=== PATIENT | male | born 1960 | race Caucasian/White ===

== ENCOUNTER 2017-05-19 09:36 | Emergency (ER) | payer OTHER ==
[2017-05-19] MEDS ORDERED: ONDANSETRON 4 MG/2 ML VIAL IVP STA (10:48)
[2017-05-19] MEDS ORDERED: SODIUM CHLORIDE 0.9% 1,000 ML IV STA ×2 (10:48→12:40)
[2017-05-19] MEDS ORDERED: HYDROmorphone 1 MG/ML 1 ML SYRINGE IVP STA ×2 (10:48→13:55)
[2017-05-19] MEDS ORDERED: RX INFO: IV CONTRAST WAS GIVEN 1 EACH MISC MISCELLANE PRN (10:54)
--- NOTE | 2017-05-19 10:58 | ED ---
General Adult HPI - General Chief complaint: Abdominal Pain Stated complaint: Abd Pain Time Seen by Provider: 05/19/17 10:32 Source: patient, RN notes reviewed Mode of arrival: ambulatory Limitations: no limitations - History of Present Illness Initial comments: 56-year-old male presents emergency Department with a chief complaint of lower abdominal pain. Patient states she's had this for the last few days. Patient does admit to a low-grade fever. Denies any nausea vomiting. He states touching the area seems to make it worse. He denies any health history but states does not see the doctor. Patient states that he was concerned due to the worsening of his pain so he thought that he should be evaluated.Patient denies any recent fever, chills, shortness of breath, chest pain, back pain, nausea vomiting, numbness or tingling, dysuria or hematuria, constipation or diarrhea, headaches or visual changes, or any other current symptoms. - Related Data Home Medications Medication Instructions Recorded Confirmed Antabuse (Unknown Dose) 1 tab PO DAILY 05/19/17 05/19/17 Ascorbic Acid [Vitamin C] 500 mg PO DAILY 05/19/17 05/19/17 Calcium Carbonate [Calcium] 600 mg PO DAILY 05/19/17 05/19/17 Ibuprofen [Motrin] 400 mg PO Q6HR PRN 05/19/17 05/19/17 Previous Rx's Medication Instructions Recorded Ciprofloxacin HCl [Cipro] 500 mg PO Q12HR #14 tablet 05/19/17 metroNIDAZOLE [Flagyl] 500 mg PO BID #20 tab 05/19/17 Allergies Allergy/AdvReac Type Severity Reaction Status Date / Time No Known Allergies Allergy Verified 05/19/17 10:41 Review of Systems ROS Statement: Those systems with pertinent positive or pertinent negative responses have been documented in the HPI. ROS Other: All systems not noted in ROS Statement are negative. Past Medical History Past Medical History: No Reported History History of Any Multi-Drug Resistant Organisms: None Reported Past Surgical History: Appendectomy, Orthopedic Surgery Additional Past Surgical History / Comment(s): left knee ortho Past Psychological History: No Psychological Hx Reported Smoking Status: Current every day smoker Past Alcohol Use History: None Reported Past Drug Use History: Marijuana General Exam - General Exam Comments Initial Comments: General: The patient is awake and alert, in no distress, and does not appear acutely ill. Eye: Pupils are equal, round and reactive to light, extra-ocular movements are intact; there is normal conjunctiva bilaterally. No signs of icterus. Ears, nose, mouth and throat: There are moist mucous membranes and no oral lesions. Neck: The neck is supple, there is no tenderness. Cardiovascular: There is a regular rate and rhythm. No murmur, rub or gallop is appreciated. Respiratory: Lungs are clear to auscultation, respirations are non-labored, breath sounds are equal. No wheezes, stridor, rales, or rhonchi. Gastrointestinal: Soft, non-distended, tenderness in the bilateral lower quadrants of the abdomen without masses or organomegaly noted. There is no rebound or guarding present. No CVA tenderness. Bowel sounds are unremarkable. Back: There is no tenderness to palpation in the midline. There is no obvious deformity. No rashes noted. Musculoskeletal: Normal ROM, no tenderness, There is no pedal edema. There is no calf tenderness or swelling. Sensation intact. Pulses equal bilaterally 2+. Neurological: CN II-XII intact, There are no obvious motor or sensory deficits. Coordination appears grossly intact. Speech is normal. Skin: Skin is warm and dry and no rashes or lesions are noted. Psychiatric: Cooperative, appropriate mood & affect, normal judgment. Limitations: no limitations Course Vital Signs 05/19/17 05/19/17 09:44 11:19 Temperature 100.1 F H 98.7 F Pulse Rate 97 81 Respiratory 18 18 Rate Blood Pressure 134/101 126/75 O2 Sat by Pulse 99 100 Oximetry Medical Decision Making - Medical Decision Making 48-year-old male presents emergency department with a chief complaint of lower abdominal pain. At this time CAT scan and lab work is been reviewed. Patient has a mildly elevated white count and CAT scan is showing a possible colitis versus other etiologies. At this time we did discuss that we will start the patient on antibiotics for home. We did discuss follow-up with the family care doctor we did discuss return parameters. We discussed this could get worse and may need to be hospitalized. This time we did offer hospitalization but patient states he rather go home. This time PATIENT'S questions have been answered. He will be discharged home. - Lab Data Result diagrams: 05/19/17 10:36 05/19/17 10:36 Lab Results 05/19/17 05/19/17 05/19/17 Range/Units 10:36 10:36 10:36 WBC 14.7 H (3.8-10.6) k/uL RBC 4.84 (4.30-5.90) m/uL Hgb 15.5 (13.0-17.5) gm/dL Hct 48.9 (39.0-53.0) % MCV 101.1 H (80.0-100.0) fL MCH 32.1 (25.0-35.0) pg MCHC 31.8 (31.0-37.0) g/dL RDW 13.3 (11.5-15.5) % Plt Count 360 (150-450) k/uL Neutrophils % 76 % Lymphocytes % 12 % Monocytes % 8 % Eosinophils % 2 % Basophils % 1 % Neutrophils # 11.1 H (1.3-7.7) k/uL Lymphocytes # 1.8 (1.0-4.8) k/uL Monocytes # 1.2 H (0-1.0) k/uL Eosinophils # 0.3 (0-0.7) k/uL Basophils # 0.1 (0-0.2) k/uL PT 10.3 (9.0-12.0) sec INR 1.0 (<1.2) APTT 21.7 L (22.0-30.0) sec Sodium 138 (137-145) mmol/L Potassium 4.4 (3.5-5.1) mmol/L Chloride 102 (98-107) mmol/L Carbon Dioxide 25 (22-30) mmol/L Anion Gap 11 mmol/L BUN 6 L (9-20) mg/dL Creatinine 0.73 (0.66-1.25) mg/dL Est GFR (MDRD) Af Amer >60 (>60 ml/min/1.73 sqM) Est GFR (MDRD) Non-Af >60 (>60 ml/min/1.73 sqM) Glucose 96 (74-99) mg/dL Plasma Lactic Acid Andrés (0.7-2.0) mmol/L Calcium 9.8 (8.4-10.2) mg/dL Total Bilirubin 0.5 (0.2-1.3) mg/dL AST 33 (17-59) U/L ALT 68 (21-72) U/L Alkaline Phosphatase 114 (38-126) U/L Total Protein 7.4 (6.3-8.2) g/dL Albumin 4.4 (3.5-5.0) g/dL Amylase 44 (30-110) U/L Lipase 55 (23-300) U/L Urine Color Urine Appearance (Clear) Urine pH (5.0-8.0) Ur Specific [place] (1.001-1.035) Urine Protein (Negative) Urine Glucose (UA) (Negative) Urine Ketones (Negative) Urine Blood (Negative) Urine Nitrite (Negative) Urine Bilirubin (Negative) Urine Urobilinogen (<2.0) mg/dL Ur Leukocyte Esterase (Negative) Urine RBC (0-5) /hpf Urine WBC (0-5) /hpf Urine Mucus (None) /hpf 05/19/17 05/19/17 Range/Units 11:04 11:10 WBC (3.8-10.6) k/uL RBC (4.30-5.90) m/uL Hgb (13.0-17.5) gm/dL Hct (39.0-53.0) % MCV (80.0-100.0) fL MCH (25.0-35.0) pg MCHC (31.0-37.0) g/dL RDW (11.5-15.5) % Plt Count (150-450) k/uL Neutrophils % % Lymphocytes % % Monocytes % % Eosinophils % % Basophils % % Neutrophils # (1.3-7.7) k/uL Lymphocytes # (1.0-4.8) k/uL Monocytes # (0-1.0) k/uL Eosinophils # (0-0.7) k/uL Basophils # (0-0.2) k/uL PT (9.0-12.0) sec INR (<1.2) APTT (22.0-30.0) sec Sodium (137-145) mmol/L Potassium (3.5-5.1) mmol/L Chloride (98-107) mmol/L Carbon Dioxide (22-30) mmol/L Anion Gap mmol/L BUN (9-20) mg/dL Creatinine (0.66-1.25) mg/dL Est GFR (MDRD) Af Amer (>60 ml/min/1.73 sqM) Est GFR (MDRD) Non-Af (>60 ml/min/1.73 sqM) Glucose (74-99) mg/dL Plasma Lactic Acid Andrés 1.6 (0.7-2.0) mmol/L Calcium (8.4-10.2) mg/dL Total Bilirubin (0.2-1.3) mg/dL AST (17-59) U/L ALT (21-72) U/L Alkaline Phosphatase (38-126) U/L Total Protein (6.3-8.2) g/dL Albumin (3.5-5.0) g/dL Amylase (30-110) U/L Lipase (23-300) U/L Urine Color Yellow Urine Appearance Clear (Clear) Urine pH 6.0 (5.0-8.0) Ur Specific [place] 1.007 (1.001-1.035) Urine Protein Negative (Negative) Urine Glucose (UA) Negative (Negative) Urine Ketones Negative (Negative) Urine Blood Small H (Negative) Urine Nitrite Negative (Negative) Urine Bilirubin Negative (Negative) Urine Urobilinogen <2.0 (<2.0) mg/dL Ur Leukocyte Esterase Negative (Negative) Urine RBC 2 (0-5) /hpf Urine WBC 1 (0-5) /hpf Urine Mucus Rare H (None) /hpf - Radiology Data Radiology results: report reviewed, image reviewed Disposition Clinical Impression: Colitis Disposition: HOME SELF-CARE Condition: Stable Instructions: Colitis (ED) Additional Instructions: Please use medication as discussed. Please follow up with family doctor if symptoms have not improved over the next two days. Please return to the emergency room if your symptoms increase or worsen or for any other concerns. Prescriptions: Ciprofloxacin HCl [Cipro] 500 mg PO Q12HR #14 tablet metroNIDAZOLE [Flagyl] 500 mg PO BID #20 tab Referrals: Rashad Dickey MD [STAFF PHYSICIAN] - 1-2 days Time of Disposition: 12:41
[2017-05-19 11:06] LABS: Basophils # (A) 0.1 k/uL (0-0.2); Basophils % (A) 1 %; CH 33.8; CHCM 33.5; Eosinophils # (A) 0.3 k/uL (0-0.7); Eosinophils % (A) 2 %; HCT 48.9 % (39.0-53.0); HDW 2.11; HGB 15.5 gm/dL (13.0-17.5); Luc # (Auto) 0.24; Luc % (Auto) 2; Lymphocytes # (A) 1.8 k/uL (1.0-4.8); Lymphocytes % (A) 12 %; MCH 32.1 pg (25.0-35.0); MCHC 31.8 g/dL (31.0-37.0); MCV 101.1 fL (80.0-100.0); Mean Platelet Volume 7.4; Monocytes # (A) 1.2 k/uL (0-1.0); Monocytes % (A) 8 %; Neutrophils # (A) 11.1 k/uL (1.3-7.7); Neutrophils % (A) 76 %; RBC 4.84 m/uL (4.30-5.90); RDW 13.3 % (11.5-15.5); WBC 14.7 k/uL (3.8-10.6); WBC (Perox) 14.69
[2017-05-19 11:19] LABS: Prothrombin Time 10.3 sec (9.0-12.0)
[2017-05-19 11:20] LABS: ALT 68 U/L (21-72); AST 33 U/L (17-59); Alkaline Phosphatase 114 U/L (38-126); Amylase 44 U/L (30-110); Anion Gap 11 mmol/L; Blood Urea Nitrogen 6 mg/dL (9-20); Calcium 9.8 mg/dL (8.4-10.2); Carbon Dioxide 25 mmol/L (22-30); Chloride 102 mmol/L (98-107); Glucose 96 mg/dL (74-99); Non-African American GFR(MDRD) >60 (>60 ml/min/1.73 sqM); Potassium 4.4 mmol/L (3.5-5.1); Sodium 138 mmol/L (137-145); Total Bilirubin 0.5 mg/dL (0.2-1.3); Total Protein 7.4 g/dL (6.3-8.2)
[2017-05-19 11:22] LABS: Partial Thromboplastin Time 21.7 sec (22.0-30.0)
[2017-05-19 11:51] LABS: Appearance,Urine Clear (Clear); Bilirubin,Urine Negative (Negative); Glucose,Urine (UA) Negative (Negative); Ketones,Urine Negative (Negative); Leukocyte Esterase,Urine Negative (Negative); Mucus,Urine Rare /hpf; Nitrite,Urine Negative (Negative); Particle Count 1067; Protein,Urine Negative (Negative); RBC,Urine 2 /hpf (0-5); Specific Gravity,Urine 1.007 (1.001-1.035); UA Billing (MACRO vs. MICRO) MICRO; Urobilinogen,Urine <2.0 mg/dL (<2.0); WBC,Urine 1 /hpf (0-5)
--- NOTE | 2017-05-19 12:01 | CT ---
EXAMINATION TYPE: CT abdomen pelvis w con DATE OF EXAM: 05/19/2017 COMPARISON: NONE HISTORY: RLQ pain with blood in the stool CT DLP: 758.7 mGycm Automated exposure control for dose reduction was used. CONTRAST: CT scan of the abdomen pelvis is performed with IV Contrast, patient injected with 100 mL of Omnipaqu e 300. FINDINGS- LUNG BASES- No significant abnormality is appreciated. LIVER/GB-gallbladder is mildly distended.. PANCREAS- No gross abnormality is seen. SPLEEN- No gross abnormality is seen. ADRENALS- No gross abnormality is seen. KIDNEYS/BLADDER- no hydronephrosis nephrolithiasis or renal mass. BOWEL-there is wall thickening of the cecum with surrounding pericecal inflammation. Findings compati ble with acute inflammatory process. LYMPH NODES- No greater than 1cm abdominal or pelvic lymph nodes are appreciated. OSSEOUS STRUCTURES-hypertrophic and degenerative change spine noted. IMPRESSION- 1. Inflammatory process and thickening of the wall of the cecum. Differential diagnosis includes righ t-sided diverticulitis, colitis or stump appendicitis. Correlate clinically.
[2017-05-19] MEDS ORDERED: LEVOFLOXACIN 750MG-D5W PMX 750 MG in DEXTROSE/WATER 1 150ML.BAG IVPB STA (12:39)
[2017-05-19] MEDS ORDERED: metroNIDAZOLE-NS PMX 500 MG in SALINE 1 100ML.BAG IVPB STA (12:41)
[2017-05-19 15:13] VITALS: BP 137/72; PULSE 72; RESP 16; TEMP 98.6
== END 2017-05-19 15:13 | disposition home or self-care (01) ==
LOC: EC 09:36
DX: K52.9 Noninfective gastroenteritis and colitis, unspecified (principal); F17.200 Nicotine dependence, unspecified, uncomplicated; Z90.49 Acquired absence of other specified parts of digestive tract; Z79.899 Other long term (current) drug therapy
CPT/HCPCS: 99284; 96365; 96366; 96368; 96375 ×2; 96376; 96361; 36415; 80053; 82150; 83605; 83690; 85025; 85610; 85730; 81001; 87040; 74177; J2405; J1170; J1956; Q9967

== ENCOUNTER 2017-05-30 01:59 | Inpatient (IN) | payer OTHER ==
[2017-05-30] MEDS ORDERED: SODIUM CHLORIDE 0.9% 500 ML IV STA (02:27)
[2017-05-30] MEDS ORDERED: ONDANSETRON 4 MG/2 ML VIAL IVP STA (02:27)
[2017-05-30] MEDS ORDERED: HYDROmorphone 1 MG/ML 1 ML SYRINGE IVP STA ×2 (02:27→04:05)
--- NOTE | 2017-05-30 03:05 | ED ---
Abdominal Pain HPI <BallardDillan - Last Filed: 05/30/17 04:37> - General Source: patient Mode of arrival: wheelchair Limitations: no limitations <Yaritza Boyd - Last Filed: 05/30/17 04:54> - General Chief Complaint: Abdominal Pain Stated Complaint: Abdominal Pain Time Seen by Provider: 05/30/17 02:17 - History of Present Illness Initial Comments: 56-year-old male patient presented to emergency department today with complaints of abdominal pain. The patient states that he has been having abdominal pain for the last 10 days. States that he was seen here and diagnosed with a colon infection, he was given Cipro for this and did complete the prescription except for 1 pill. Patient states that the pain did improve somewhat, however 2 days ago the pain started again but was more severe. Patient states his abdomen is extremely tender to the touch. He describes the pain as sharp and constant. He states he has had one episode of vomiting today however does not feel overtly nauseous. He states that he is also having approximately 3 bowel movements per day which is normal for him however they have been black. Patient states he has had presence of bright red blood in his bowel movements before however has never had black stool. He denies any fever, chills, chest pain, dizziness, weakness, visual disturbance, headache, shortness of breath, back pain, hematuria, dysuria, urinary frequency or urinary urgency. Patient did abuse alcohol for the last 40 years however states he has been abstinent for the last 30 days. The liver did pull me outside the room and states that 2 days ago patient was intoxicated on liquor 2 days ago however has been sober since. (Yaritza Boyd) - Related Data Home Medications Medication Instructions Recorded Confirmed Antabuse (Unknown Dose) 1 tab PO DAILY 05/19/17 05/30/17 Ascorbic Acid [Vitamin C] 500 mg PO DAILY 05/19/17 05/30/17 Calcium Carbonate [Calcium] 600 mg PO DAILY 05/19/17 05/30/17 Ibuprofen [Motrin] 400 mg PO Q6HR PRN 05/19/17 05/30/17 Previous Rx's Medication Instructions Recorded Hydrocodone/Acetaminophen [[place] 1 each PO Q6HR PRN #20 tab 05/19/17 5-325] Allergies Allergy/AdvReac Type Severity Reaction Status Date / Time No Known Allergies Allergy Verified 05/19/17 10:41 Review of Systems ROS Other: All systems not noted in ROS Statement are negative. <Dillan Ballard - Last Filed: 05/30/17 04:37> ROS Other: All systems not noted in ROS Statement are negative. <Yaritza Boyd - Last Filed: 05/30/17 04:54> ROS Statement: Those systems with pertinent positive or pertinent negative responses have been documented in the HPI. Past Medical History Past Medical History: No Reported History History of Any Multi-Drug Resistant Organisms: None Reported Past Surgical History: Appendectomy, Orthopedic Surgery Additional Past Surgical History / Comment(s): left knee ortho Past Psychological History: No Psychological Hx Reported Smoking Status: Current every day smoker Past Alcohol Use History: None Reported Past Drug Use History: Marijuana <Yaritza Boyd - Last Filed: 05/30/17 04:54> General Exam Limitations: no limitations General appearance: alert, in no apparent distress Eye exam: Present: normal appearance, PERRL, EOMI. Absent: scleral icterus, conjunctival injection, periorbital swelling ENT exam: Present: normal exam, normal oropharynx, mucous membranes moist Neck exam: Present: normal inspection. Absent: tenderness, meningismus, lymphadenopathy Respiratory exam: Present: normal lung sounds bilaterally. Absent: respiratory distress, wheezes, rales, rhonchi, stridor Cardiovascular Exam: Present: regular rate, normal rhythm, normal heart sounds. Absent: systolic murmur, diastolic murmur, rubs, gallop, clicks GI/Abdominal exam: Present: soft, tenderness (Generalized), guarding, normal bowel sounds. Absent: distended, rebound, rigid Extremities exam: Present: normal inspection, full ROM, normal capillary refill. Absent: tenderness, pedal edema, joint swelling, calf tenderness Back exam: Present: normal inspection. Absent: CVA tenderness (R), CVA tenderness (L) Neurological exam: Present: alert, oriented X3, CN II-XII intact Psychiatric exam: Present: normal affect, normal mood Skin exam: Present: warm, dry, intact, normal color. Absent: rash <Yaritza Boyd - Last Filed: 05/30/17 04:54> Medical Decision Making - Lab Data Result diagrams: 05/30/17 02:55 05/30/17 02:55 <Dillan Ballard - Last Filed: 05/30/17 04:37> - Lab Data Result diagrams: 05/30/17 02:55 05/30/17 02:55 - Radiology Data Radiology results: report reviewed, image reviewed <Yaritza Boyd - Last Filed: 05/30/17 04:54> - Medical Decision Making Patient reevaluated by myself, Dr. Ballard. Patient is resting comfortably in bed. Patient does have mild diffuse tenderness, moderate right lower quadrant tenderness and light exam. Patient may have some minimal guarding right lower quadrant. Patient and family were updated on results and plan. Case was discussed in detail with Dr. Grace, including computed tomography scan. He will admit and agrees with Unasyn at this time. He will evaluate patient this morning. (Dillan Ballard) 56-year-old male patient presented to emergency department today for evaluation of generalized abdominal pain. CT of the abdomen and pelvis was obtained and did show areas of pneumoperitoneum, free of fluid in the pelvis, and possibility for acutely ruptured appendicitis. Blood work was reviewed and did show a 20.5 white blood cell count. Patient vital signs up in stable patient is afebrile. Patient does report having appendectomy at age 11. The concern is for a ruptured appendix stump versus other inflammatory etiology. Dr. Ballard by attending did speak to Dr. Grace the surgeon cotton grower who agrees with our plan to start Unasyn. Patient will be given medication for pain control, IV fluids, and admitted for further evaluation. Patient and family updated regarding plan. (Yaritza Boyd) - Lab Data Lab Results 05/30/17 05/30/17 05/30/17 Range/Units 02:41 02:55 02:55 WBC 20.5 H (3.8-10.6) k/uL RBC 4.84 (4.30-5.90) m/uL Hgb 15.4 (13.0-17.5) gm/dL Hct 46.9 (39.0-53.0) % MCV 96.9 (80.0-100.0) fL MCH 31.9 (25.0-35.0) pg MCHC 32.9 (31.0-37.0) g/dL RDW 13.4 (11.5-15.5) % Plt Count 324 (150-450) k/uL Neutrophils % 90 % Lymphocytes % 6 % Monocytes % 2 % Eosinophils % 2 % Basophils % 0 % Neutrophils # 18.3 H (1.3-7.7) k/uL Lymphocytes # 1.3 (1.0-4.8) k/uL Monocytes # 0.4 (0-1.0) k/uL Eosinophils # 0.4 (0-0.7) k/uL Basophils # 0.1 (0-0.2) k/uL PT (9.0-12.0) sec INR (<1.2) APTT (22.0-30.0) sec Sodium 139 (137-145) mmol/L Potassium 3.2 L (3.5-5.1) mmol/L Chloride 103 (98-107) mmol/L Carbon Dioxide 27 (22-30) mmol/L Anion Gap 9 mmol/L BUN 7 L (9-20) mg/dL Creatinine 0.70 (0.66-1.25) mg/dL Est GFR (MDRD) Af Amer >60 (>60 ml/min/1.73 sqM) Est GFR (MDRD) Non-Af >60 (>60 ml/min/1.73 sqM) Glucose 87 (74-99) mg/dL Plasma Lactic Acid Andrés (0.7-2.0) mmol/L Calcium 9.2 (8.4-10.2) mg/dL Total Bilirubin 0.6 (0.2-1.3) mg/dL AST 44 (17-59) U/L ALT 59 (21-72) U/L Alkaline Phosphatase 118 (38-126) U/L Total Protein 6.5 (6.3-8.2) g/dL Albumin 3.7 (3.5-5.0) g/dL Amylase 62 (30-110) U/L Lipase 56 (23-300) U/L Urine Color Yellow Urine Appearance Clear (Clear) Urine pH 5.5 (5.0-8.0) Ur Specific [place] 1.015 (1.001-1.035) Urine Protein Negative (Negative) Urine Glucose (UA) Negative (Negative) Urine Ketones Negative (Negative) Urine Blood Small H (Negative) Urine Nitrite Negative (Negative) Urine Bilirubin Negative (Negative) Urine Urobilinogen <2.0 (<2.0) mg/dL Ur Leukocyte Esterase Negative (Negative) Urine RBC 3 (0-5) /hpf Urine WBC <1 (0-5) /hpf Ur Squamous Epith Cells <1 (0-4) /hpf Urine Mucus Rare H (None) /hpf Stool Occult Blood (Negative) 05/30/17 05/30/17 05/30/17 Range/Units 02:55 02:55 03:25 WBC (3.8-10.6) k/uL RBC (4.30-5.90) m/uL Hgb (13.0-17.5) gm/dL Hct (39.0-53.0) % MCV (80.0-100.0) fL MCH (25.0-35.0) pg MCHC (31.0-37.0) g/dL RDW (11.5-15.5) % Plt Count (150-450) k/uL Neutrophils % % Lymphocytes % % Monocytes % % Eosinophils % % Basophils % % Neutrophils # (1.3-7.7) k/uL Lymphocytes # (1.0-4.8) k/uL Monocytes # (0-1.0) k/uL Eosinophils # (0-0.7) k/uL Basophils # (0-0.2) k/uL PT 11.3 (9.0-12.0) sec INR 1.1 (<1.2) APTT 23.0 (22.0-30.0) sec Sodium (137-145) mmol/L Potassium (3.5-5.1) mmol/L Chloride (98-107) mmol/L Carbon Dioxide (22-30) mmol/L Anion Gap mmol/L BUN (9-20) mg/dL Creatinine (0.66-1.25) mg/dL Est GFR (MDRD) Af Amer (>60 ml/min/1.73 sqM) Est GFR (MDRD) Non-Af (>60 ml/min/1.73 sqM) Glucose (74-99) mg/dL Plasma Lactic Acid Andrés 1.8 (0.7-2.0) mmol/L Calcium (8.4-10.2) mg/dL Total Bilirubin (0.2-1.3) mg/dL AST (17-59) U/L ALT (21-72) U/L Alkaline Phosphatase (38-126) U/L Total Protein (6.3-8.2) g/dL Albumin (3.5-5.0) g/dL Amylase (30-110) U/L Lipase (23-300) U/L Urine Color Urine Appearance (Clear) Urine pH (5.0-8.0) Ur Specific [place] (1.001-1.035) Urine Protein (Negative) Urine Glucose (UA) (Negative) Urine Ketones (Negative) Urine Blood (Negative) Urine Nitrite (Negative) Urine Bilirubin (Negative) Urine Urobilinogen (<2.0) mg/dL Ur Leukocyte Esterase (Negative) Urine RBC (0-5) /hpf Urine WBC (0-5) /hpf Ur Squamous Epith Cells (0-4) /hpf Urine Mucus (None) /hpf Stool Occult Blood Negative (Negative) 05/30/17 03:25 EKG obtained at 0310 reveals normal sinus rhythm with sinus arrhythmia. Possible left atrial margin. Borderline EKG. Ventricular rate is 82,. Interval 184, QRS duration 90, QT 394, QTc 460. No evidence of ST elevation or depression. (Yaritza Boyd) - Radiology Data KUB x-ray was obtained and showed an that the GI tract is unremarkable no dilation. Bones and joints are unremarkable. Impression is normal KUB x-ray by Dr. Bates. CT of the abdomen and pelvis did show acute information the right lower quadrant with small amounts of pneumoperitoneum compatible with acutely ruptured appendicitis. Free fluid noted in the pelvis. Bones and joints show no acute fracture or dislocation. Impression by Dr Bates showed an acutely ruptured appendicitis.. (Yaritza Boyd) Disposition <Dillan Ballard - Last Filed: 05/30/17 04:37> Decision to Admit Reason: Admit from EC Decision Date: 05/30/17 Decision Time: 04:47 <Yaritza Boyd - Last Filed: 05/30/17 04:54> Clinical Impression: Ruptured appendicitis Disposition: ADMITTED IP TO THIS [facility] Condition: Fair Referrals: None,Stated [Primary Care Provider] - 1-2 days
[2017-05-30 03:06] LABS: Appearance,Urine Clear (Clear); Bilirubin,Urine Negative (Negative); Glucose,Urine (UA) Negative (Negative); Ketones,Urine Negative (Negative); Leukocyte Esterase,Urine Negative (Negative); Mucus,Urine Rare /hpf; Nitrite,Urine Negative (Negative); PH, Urine 5.5 (5.0-8.0); Particle Count 2592; Protein,Urine Negative (Negative); RBC,Urine 3 /hpf (0-5); Specific Gravity,Urine 1.015 (1.001-1.035); Squamous Epithelial Cell,Urine <1 /hpf (0-4); UA Billing (MACRO vs. MICRO) MICRO; Urobilinogen,Urine <2.0 mg/dL (<2.0); WBC,Urine <1 /hpf (0-5)
--- NOTE | 2017-05-30 03:10 | XR ---
EXAM: XR KUB, 1 View CLINICAL HISTORY: Reason: abdominal pain TECHNIQUE: Frontal supine view of the abdomen/pelvis. COMPARISON: No relevant prior studies available. FINDINGS: Gastrointestinal tract: Unremarkable. No dilation. Bones/joints: Unremarkable. IMPRESSION: Normal KUB x-ray.
[2017-05-30] MEDS ORDERED: RX INFO: IV CONTRAST WAS GIVEN 1 EACH MISC MISCELLANE PRN (03:31)
[2017-05-30 03:35] LABS: Basophils # (A) 0.1 k/uL (0-0.2); Basophils % (A) 0 %; CH 33.5; CHCM 34.7; Eosinophils # (A) 0.4 k/uL (0-0.7); Eosinophils % (A) 2 %; HCT 46.9 % (39.0-53.0); HDW 2.27; HGB 15.4 gm/dL (13.0-17.5); Luc % (Auto) 1; Lymphocytes # (A) 1.3 k/uL (1.0-4.8); Lymphocytes % (A) 6 %; MCH 31.9 pg (25.0-35.0); MCHC 32.9 g/dL (31.0-37.0); MCV 96.9 fL (80.0-100.0); Mean Platelet Volume 7.6; Monocytes # (A) 0.4 k/uL (0-1.0); Monocytes % (A) 2 %; Neutrophils # (A) 18.3 k/uL (1.3-7.7); Neutrophils % (A) 90 %; RBC 4.84 m/uL (4.30-5.90); RDW 13.4 % (11.5-15.5); WBC 20.5 k/uL (3.8-10.6); WBC (Perox) 19.93
[2017-05-30 03:44] LABS: ALT 59 U/L (21-72); AST 44 U/L (17-59); Alkaline Phosphatase 118 U/L (38-126); Amylase 62 U/L (30-110); Anion Gap 9 mmol/L; Blood Urea Nitrogen 7 mg/dL (9-20); Calcium 9.2 mg/dL (8.4-10.2); Carbon Dioxide 27 mmol/L (22-30); Chloride 103 mmol/L (98-107); Glucose 87 mg/dL (74-99); Non-African American GFR(MDRD) >60 (>60 ml/min/1.73 sqM); Potassium 3.2 mmol/L (3.5-5.1); Sodium 139 mmol/L (137-145); Total Bilirubin 0.6 mg/dL (0.2-1.3); Total Protein 6.5 g/dL (6.3-8.2)
[2017-05-30 03:51] LABS: INR 1.1 (<1.2); Prothrombin Time 11.3 sec (9.0-12.0)
[2017-05-30] MEDS ORDERED: POTASSIUM CHLORIDE ER 20 MEQ TAB.ER PO STA (03:52)
--- NOTE | 2017-05-30 04:10 | CT ---
EXAM: CT Abdomen and Pelvis With Intravenous Contrast CLINICAL HISTORY: Reason: Pain TECHNIQUE: Axial computed tomography images of the abdomen and pelvis with intravenous contrast. DLP is 1446 mGy-cm. This CT exam was performed using one or more of the following dose reduction techniques: automated exposure control, adjustment of the mA and/or kV according to patient size, and/or use of iterative reconstruction technique. COMPARISON: 05/19/17 FINDINGS: Lower thorax: No acute findings. ABDOMEN: Liver: Unremarkable. No mass. Gallbladder and bile ducts: Unremarkable. No calcified stones. No ductal dilation. Pancreas: Unremarkable. No mass. No ductal dilation. Spleen: Unremarkable. No splenomegaly. Adrenals: Unremarkable. No mass. Kidneys and ureters: Unremarkable. No solid mass. No hydronephrosis. Stomach and bowel: Unremarkable. No obstruction. No mucosal thickening. Appendix: No findings to suggest acute appendicitis. PELVIS: Bladder: Unremarkable. No mass. Reproductive: Unremarkable as visualized. ABDOMEN and PELVIS: Intraperitoneal space: Acute inflammation in the right lower quadrant with small amounts of pneumoperitoneum compatible with acutely ruptured appendicitis. Free fluid noted in the pelvis. Bones/joints: No acute fracture. No dislocation. Soft tissues: Unremarkable. Vasculature: Unremarkable. No abdominal aortic aneurysm. Lymph nodes: Unremarkable. No enlarged lymph nodes. IMPRESSION: Acutely ruptured appendicitis. Critical Value Communications 05/30/17 04:12 Call Doctor Regarding Appendicitis, called Dr. Boyd on 05/30 04:11 (-04:00)
[2017-05-30] MEDS ORDERED: AMPICILLIN-SULBACTAM 3 GM in SODIUM CHLORIDE 0.9% 100 ML IVPB STA (04:13)
[2017-05-30] MEDS ORDERED: SODIUM CHLORIDE 0.9% 1,000 ML IV STA (04:14)
[2017-05-30] MEDS ORDERED: ONDANSETRON 4 MG/2 ML VIAL IVP PRN (04:40)
[2017-05-30] MEDS ORDERED: NALOXONE 0.4 MG/ML 1 ML VIAL IV PRN (04:40)
[2017-05-30] MEDS: HYDROmorphone 1 MG/ML 1 ML SYRINGE IV PRN ×5 (06:47→23:49)
[2017-05-30] MEDS: SODIUM CHLORIDE 0.9% 1,000 ML IV SCH ×2 (06:53→16:31)
[2017-05-30] MEDS: AMPICILLIN-SULBACTAM 3 GM in SODIUM CHLORIDE 0.9% 100 ML IVPB SCH ×3 (10:58→20:49)
[2017-05-30] MEDS ORDERED: IV FLUID CONTINUATION 1,000 ML IV ONE (12:18)
--- NOTE | 2017-05-30 12:20 | P.GSHP ---
History of Present Illness H&P Date: 05/30/17 Chief Complaint: Right lower quadrant pain This a 48-year-old male who has complaints of right lower quadrant pain for 3-5 days. The patient states he had significant pain yesterday. Patient's workup found have evidence of acute appendicitis. There is evidence of perforation with cecal thickening. The patient received IV antibiotic overnight. He states his pain has worsened. The patient states he had an appendectomy performed age 12. Past Medical History Past Medical History: No Reported History, Seizure Disorder Additional Past Medical History / Comment(s): ETOH seizures last month, "detoxing off alcohol" at [place] History of Any Multi-Drug Resistant Organisms: None Reported Past Surgical History: Appendectomy, Orthopedic Surgery Additional Past Surgical History / Comment(s): left knee ortho Past Anesthesia/Blood Transfusion Reactions: No Reported Reaction, Postoperative Nausea & Vomiting (PONV) Past Psychological History: No Psychological Hx Reported Smoking Status: Current every day smoker Past Alcohol Use History: None Reported Past Drug Use History: Marijuana - Past Family History Father Family Medical History: No Reported History Mother Family Medical History: CVA/TIA, Diabetes Mellitus, Myocardial Infarction ([place]) Medications and Allergies Home Medications Medication Instructions Recorded Confirmed Type Antabuse (Unknown Dose) 1 tab PO DAILY 05/19/17 05/30/17 History Ascorbic Acid [Vitamin C] 500 mg PO DAILY 05/19/17 05/30/17 History Calcium Carbonate [Calcium] 600 mg PO DAILY 05/19/17 05/30/17 History Ibuprofen [Motrin] 400 mg PO Q6HR PRN 05/19/17 05/30/17 History Ciprofloxacin HCl [Cipro] 500 mg PO Q12HR 05/30/17 05/30/17 History metroNIDAZOLE [Flagyl] 500 mg PO BID 05/30/17 05/30/17 History traZODone HCL [Desyrel] 150 mg PO HS PRN 05/30/17 05/30/17 History Allergies Allergy/AdvReac Type Severity Reaction Status Date / Time No Known Allergies Allergy Verified 05/30/17 10:57 Surgical - Exam Vital Signs Temp Pulse Resp BP Pulse Ox 97.1 F L 84 18 117/61 98 05/30/17 02:03 05/30/17 02:03 05/30/17 02:03 05/30/17 02:03 05/30/17 02:03 - General well developed, no distress - Eyes PERRL - ENT normal pinna - Neck no masses - Respiratory normal expansion - Cardiovascular Rhythm: regular - Abdomen Marked right lower quadrant tenderness. There is positive rebound guarding. Abdomen: soft Results - Labs 05/30/17 02:55 05/30/17 02:55 Abnormal Lab Results - Last 24 Hours (Table) 05/30/17 05/30/17 05/30/17 Range/Units 02:41 02:55 02:55 WBC 20.5 H (3.8-10.6) k/uL Neutrophils # 18.3 H (1.3-7.7) k/uL Potassium 3.2 L (3.5-5.1) mmol/L BUN 7 L (9-20) mg/dL Urine Blood Small H (Negative) Urine Mucus Rare H (None) /hpf Diabetes panel 05/30/17 Range/Units 02:55 Sodium 139 (137-145) mmol/L Potassium 3.2 L (3.5-5.1) mmol/L Chloride 103 (98-107) mmol/L Carbon Dioxide 27 (22-30) mmol/L BUN 7 L (9-20) mg/dL Creatinine 0.70 (0.66-1.25) mg/dL Glucose 87 (74-99) mg/dL Calcium 9.2 (8.4-10.2) mg/dL AST 44 (17-59) U/L ALT 59 (21-72) U/L Alkaline Phosphatase 118 (38-126) U/L Total Protein 6.5 (6.3-8.2) g/dL Albumin 3.7 (3.5-5.0) g/dL Calcium panel 05/30/17 Range/Units 02:55 Calcium 9.2 (8.4-10.2) mg/dL Albumin 3.7 (3.5-5.0) g/dL Pituitary panel 05/30/17 Range/Units 02:55 Sodium 139 (137-145) mmol/L Potassium 3.2 L (3.5-5.1) mmol/L Chloride 103 (98-107) mmol/L Carbon Dioxide 27 (22-30) mmol/L BUN 7 L (9-20) mg/dL Creatinine 0.70 (0.66-1.25) mg/dL Glucose 87 (74-99) mg/dL Calcium 9.2 (8.4-10.2) mg/dL Adrenal panel 05/30/17 Range/Units 02:55 Sodium 139 (137-145) mmol/L Potassium 3.2 L (3.5-5.1) mmol/L Chloride 103 (98-107) mmol/L Carbon Dioxide 27 (22-30) mmol/L BUN 7 L (9-20) mg/dL Creatinine 0.70 (0.66-1.25) mg/dL Glucose 87 (74-99) mg/dL Calcium 9.2 (8.4-10.2) mg/dL Total Bilirubin 0.6 (0.2-1.3) mg/dL AST 44 (17-59) U/L ALT 59 (21-72) U/L Alkaline Phosphatase 118 (38-126) U/L Total Protein 6.5 (6.3-8.2) g/dL Albumin 3.7 (3.5-5.0) g/dL Assessment and Plan Plan: Acute appendicitis. Perforation. Patient will undergo exposure laparotomy today.
[2017-05-30] MEDS ORDERED: NEOSTIGMINE 1 MG/ML 10 ML VIAL ONE (12:40)
[2017-05-30] MEDS ORDERED: LIDOCAINE 1% INJ 10MG/ML (20 ML MDV) ONE (12:40)
[2017-05-30] MEDS ORDERED: KETOROLAC 30 MG/ML 1 ML VIAL ONE (12:40)
[2017-05-30] MEDS ORDERED: PROPOFOL 10 MG/ML 20 ML VIAL IV ONE (12:40)
[2017-05-30] MEDS ORDERED: HYDROmorphone (PF) 1 MG/ML ONE (12:40)
[2017-05-30] MEDS ORDERED: GLYCOPYRROLATE 0.2 MG/ML 2 ML VIAL ONE (12:40)
[2017-05-30] MEDS ORDERED: ROCURONIUM BROMIDE 10 MG/ML 10 ML VIAL IV ONE (12:40)
[2017-05-30] MEDS ORDERED: MIDAZOLAM 2 MG/2 ML VIAL ONE (12:40)
[2017-05-30] MEDS ORDERED: fentaNYL (PF) 50 MCG/ML 2 ML AMP ONE (12:40)
[2017-05-30] MEDS ORDERED: LACTATED RINGERS 1,000 ML IV ONE (13:52)
[2017-05-30] MEDS: HYDROmorphone 1 MG/ML 1 ML SYRINGE IVP ONE ×2 (14:04→14:41)
[2017-05-30] MEDS ORDERED: HYDROmorphone 1 MG/ML 1 ML SYRINGE IVP ONE ×2 (14:09→14:36)
--- NOTE | 2017-05-30 14:24 | P.OP ---
Date of Procedure: 05/30/17 Preoperative Diagnosis: Perforated bowel Postoperative Diagnosis: Possible perforated cecum, appendicitis Procedure(s) Performed: Right colectomy Implants: Anesthesia: MONTRELL Surgeon: Kendall Grace Estimated Blood Loss (ml): 25 Pathology: other (Right colon) Condition: stable Disposition: PACU Indications for Procedure: Operative Findings: Description of Procedure: The patient's placed on the operative table in the supine position. He received general anesthesia. His abdomen was prepped and draped usual sterile fashion. The abdomen was entered through a midline incision. On entering the abdomen there is. Fluid noted. The Book[place] chest placed a wound. The cecum was visualized. It appeared to be quite inflamed. At this point the ileum was examined and there was significant inflammation near the terminal ileum. The right colon was mobilized towards the midline. And the cecum had an inflammatory mass. I was unable see a definite perforation. However the entire cecum and terminal ileum were quite inflamed. At this point it was decided to perform a limited right colectomy. The terminal ileum was transected with a GI stapler. The right colon was transected with a GI stapler. And then the LigaSure device was used to divide the mesentery. A side -to-side functional end-to-end staple anastomosis created using the UDAY and TA stapler. A 3-0 GI silk sutures using a crotch stitch. The abdomen was then irrigated with 6 L of fluid. A SANTOS drain was placed into the pelvis. The fascia was closed with looped #1 PDS suture. The skin was closed with tammy. Telfa sandy were placed in the skin. Patient was sent to recovery in stable condition.
[2017-05-31] MEDS: SODIUM CHLORIDE 0.9% 1,000 ML IV SCH ×3 (00:43→20:51)
[2017-05-31] MEDS: NICOTINE POLACRILEX 2 MG GUM BUCCAL PRN ×3 (01:58→21:16)
[2017-05-31] MEDS: HYDROmorphone 1 MG/ML 1 ML SYRINGE IV PRN ×7 (03:21→21:09)
[2017-05-31] MEDS: AMPICILLIN-SULBACTAM 3 GM in SODIUM CHLORIDE 0.9% 100 ML IVPB SCH ×4 (06:00→23:02)
--- NOTE | 2017-05-31 09:13 | P.PN ---
Subjective Principal diagnosis: Cecal inflammation with microperforation [employer] 48-year-old male who underwent exploratory laparotomy and subsequent right colectomy for cecal inflammation with microperforation. Is unclear if this was due to his appendiceal stump. Objective - Vital Signs Vital signs: Vital Signs Temp 98.6 F 05/31/17 07:00 Pulse 92 05/31/17 07:00 Resp 20 05/31/17 07:00 BP 132/73 05/31/17 07:00 Pulse Ox 94 L 05/31/17 07:00 Intake & Output 05/30/17 05/31/17 05/31/17 18:59 06:59 18:59 Intake Total 1200 0 Output Total 300 300 30 Balance 900 -300 -30 Intake: IV 1200 Oral 0 Output: Drainage 100 30 Left Lower Abdomen 100 30 Urine 150 300 Estimated Blood Loss 50 Other: Voiding Method Indwelling Catheter Indwelling Catheter Indwelling Catheter # Voids 2 - Constitutional General appearance: Present: cooperative - Gastrointestinal Gastrointestinal Comment(s): Abdomen soft. Incision site is clean dry and intact. - Labs CBC & Chem 7: 05/30/17 02:55 05/30/17 02:55 Labs: Microbiology - Last 24 Hours (Table) 05/30/17 02:55 Blood Culture - Preliminary Blood No Growth after 24 hours Assessment and Plan Plan: Status post right E. Patient will remain nothing by mouth today. We have encouraged a relation and pulmonary toilet.
[2017-05-31 09:17] LABS: Basophils # (A) 0.1 k/uL (0-0.2); Basophils % (A) 0 %; CH 31.8; Eosinophils # (A) 0.3 k/uL (0-0.7); Eosinophils % (A) 2 %; HCT 39.7 % (39.0-53.0); HDW 2.25; HGB 13.4 gm/dL (13.0-17.5); Luc # (Auto) 0.14; Luc % (Auto) 1; Lymphocytes # (A) 1.4 k/uL (1.0-4.8); Lymphocytes % (A) 8 %; MCH 32.8 pg (25.0-35.0); MCHC 33.9 g/dL (31.0-37.0); MCV 96.8 fL (80.0-100.0); Mean Platelet Volume 7.1; Monocytes # (A) 0.6 k/uL (0-1.0); Monocytes % (A) 3 %; Neutrophils # (A) 14.4 k/uL (1.3-7.7); Neutrophils % (A) 86 %; RDW 12.6 % (11.5-15.5); WBC 16.8 k/uL (3.8-10.6); WBC (Perox) 17.33
[2017-05-31] MEDS ORDERED: ACETAMINOPHEN TAB 325 MG TAB PO PRN (16:06)
--- NOTE | 2017-05-31 18:18 | CONS ---
CONSULTATION DATE OF CONSULTATION: 05/31/2017. SUBJECTIVE/CHIEF COMPLAINT: 56-year-old, white male complains of right lower quadrant pain. HISTORY OF PRESENT ILLNESS: This 56-year-old, white male, complains of lower quadrant pain for 3-5 days. History of acute appendicitis. He is status post appendicitis. He is complaining of lower back pain. Nicotine addiction. He wants some Nicorette gum. He wants something for lower back pain, due to severe pain and the mid abdomen wound, he was kept overnight. PAST MEDICAL HISTORY: Seizure disorder, alcohol withdrawal. He states he takes Antabuse once in a while. He has a cigar once in a while. SURGICAL HISTORY: Orthopedic surgery. Appendectomy and left knee arthroscopy. MEDICATIONS: 1. Antabuse. 2. . 3. Calcium. 4. Motrin. 5. Cipro. 6. Flagyl. 7. Desyrel. ALLERGIES: No known drug allergies. PHYSICAL EXAMINATION: Vital signs temp 97.1, pulse 84, respiratory 16 to 18, blood pressure 110s to 120s over 60s. O2 96 to 98% on room air. Cardiovascular S1, S2. Lungs clear. GI soft. Hematology: Negative Homans. Psych: Fair mood and affect. She has midline incision clean dry and intact. Continue current treatment. Follow up in the next 24 to 48 hours before discharge. Nicorette gum will be given. MMODL / IJN: [id number] /
[2017-05-31] MEDS: DOCUSATE 100 MG CAP PO SCH (19:57)
[2017-06-01] MEDS: HYDROmorphone 1 MG/ML 1 ML SYRINGE IV PRN ×8 (01:05→23:59)
[2017-06-01] MEDS: SODIUM CHLORIDE 0.9% 1,000 ML IV SCH ×2 (02:49→17:46)
[2017-06-01] MEDS: AMPICILLIN-SULBACTAM 3 GM in SODIUM CHLORIDE 0.9% 100 ML IVPB SCH ×4 (04:15→23:45)
[2017-06-01 07:40] LABS: Basophils % (A) 0 %; CH 32.1; CHCM 33.4; Eosinophils # (A) 0.3 k/uL (0-0.7); Eosinophils % (A) 3 %; HCT 40.3 % (39.0-53.0); HDW 2.32; HGB 13.5 gm/dL (13.0-17.5); Luc # (Auto) 0.19; Luc % (Auto) 2; Lymphocytes # (A) 1.5 k/uL (1.0-4.8); Lymphocytes % (A) 12 %; MCH 32.4 pg (25.0-35.0); MCHC 33.5 g/dL (31.0-37.0); MCV 96.5 fL (80.0-100.0); Monocytes # (A) 0.4 k/uL (0-1.0); Monocytes % (A) 3 %; Neutrophils # (A) 9.8 k/uL (1.3-7.7); Neutrophils % (A) 80 %; RBC 4.18 m/uL (4.30-5.90); RDW 12.3 % (11.5-15.5); WBC 12.3 k/uL (3.8-10.6); WBC (Perox) 12.35
[2017-06-01 08:18] LABS: ALT 35 U/L (21-72); AST 25 U/L (17-59); Alkaline Phosphatase 86 U/L (38-126); Anion Gap 9 mmol/L; Blood Urea Nitrogen 5 mg/dL (9-20); Calcium 8.9 mg/dL (8.4-10.2); Carbon Dioxide 26 mmol/L (22-30); Chloride 100 mmol/L (98-107); Glucose 77 mg/dL (74-99); Non-African American GFR(MDRD) >60 (>60 ml/min/1.73 sqM); Potassium 3.9 mmol/L (3.5-5.1); Sodium 135 mmol/L (137-145); Total Bilirubin 0.7 mg/dL (0.2-1.3); Total Protein 5.7 g/dL (6.3-8.2)
[2017-06-01] MEDS: DOCUSATE 100 MG CAP PO SCH ×2 (09:17→21:10)
--- NOTE | 2017-06-01 14:12 | P.PN ---
Subjective 56-year-old male being seen on rounds this morning currently sitting up in bed taking a clear liquid diet and tolerating. Patient states he has been up ambulating in the hallway this morning. Patient states no stool. Patient states urinating no difficulty patient reports no nausea vomiting. 56-year-old male presented with a chief complaint right lower quadrant pain 3-5 day duration underwent a exploratory laparotomy and subsequent right colectomy for cecal inflammation with microperforation done on the may. Is unclear if this was due to his appendiceal stump Objective - Vital Signs Vital signs: Vital Signs Temp 98.7 F 06/01/17 07:00 Pulse 66 06/01/17 07:00 Resp 16 06/01/17 07:00 BP 160/74 06/01/17 07:00 Pulse Ox 94 L 06/01/17 07:00 Intake & Output 05/31/17 06/01/17 06/01/17 18:59 06:59 18:59 Output Total 5758 651 7898 Balance -1530 -860 -1870 Weight 81.873 kg Output: Drainage 30 60 20 Left Lower Abdomen 30 60 20 Urine 1842 355 5556 Other: Voiding Method Indwelling Catheter Indwelling Catheter Indwelling Catheter - Exam GENERAL APPEARANCE: 56-year-old male patient is alert, oriented, in no acute distress. VITAL SIGNS: Reviewed HEENT: Head is normocephalic and atraumatic. Pupils are equal and reactive. The nares are patent. Oropharynx is clear without lesions. NECK: Supple without lymphadenopathy. Traches midline. HEART: S1, S2. Regular rate and rhythm. Denying chest pain LUNGS: No crackles or wheezes are heard. Adequate air movement bilaterally on room air sats 94% ABDOMEN: Soft, slight surgical tenderness dressing to the surgical site dry. nondistended with good bowel sounds. No peritoneal signs. No palpable organomegaly or masses. Left lower abdomen draining 10 mL documented urinating no difficulty EXTREMITIES: Normal skin color and turgor. No cyanosis, rash, ulceration, clubbing or edema. Radial pedal pulses are 2/4 bilaterally. Venodyne's on to bilateral lower extremities NEUROLOGICAL: No focal deficits. Strength and sensation are grossly intact. - Labs CBC & Chem 7: 06/01/17 07:13 06/01/17 07:13 Labs: Abnormal Lab Results - Last 24 Hours (Table) 06/01/17 06/01/17 Range/Units 07:13 07:13 WBC 12.3 H (3.8-10.6) k/uL RBC 4.18 L (4.30-5.90) m/uL Neutrophils # 9.8 H (1.3-7.7) k/uL Sodium 135 L (137-145) mmol/L BUN 5 L (9-20) mg/dL Creatinine 0.63 L (0.66-1.25) mg/dL Total Protein 5.7 L (6.3-8.2) g/dL Albumin 3.0 L (3.5-5.0) g/dL Microbiology - Last 24 Hours (Table) 05/30/17 02:55 Blood Culture - Preliminary Blood No Growth after 48 hours Assessment and Plan Plan: Impression Present on admission right lower quadrant pain suspect due to cecal inflammation with microperforation Status post May 30 exploratory laparotomy right colectomy for cecal inflammation with microperforation unclear if this was due to his appendiceal stump Present on admission leukocytosis, febrile, tachycardic meet SIRS criteria suspect early sepsis due to cecal inflammation with microperforation Present on admission severe hypokalemia potassium 3.2 Chronic nicotine dependency Plan Continue postop surgical care Pain control Resume home meds as appropriate Increase activity DVT and GI prophylaxis Patient's been counseled about stop smoking cigarettes Diet will be advanced as tolerated Further recommendations pending Continue IV Unasyn as ordered repeat labs in the morning The above impression and plan of care have been discussed and directed by signing physician. Key Castillo nurse practitioner acting as scribe for signing physician.
[2017-06-01] MEDS: HEPARIN SODIUM,PORCINE 5,000 UNIT/ML 1 ML VIAL SQ SCH ×2 (15:19→23:45)
[2017-06-01] MEDS: FAMOTIDINE 20 MG TAB PO SCH (21:10)
[2017-06-02] MEDS: NICOTINE POLACRILEX 2 MG GUM BUCCAL PRN ×4 (03:18→20:20)
[2017-06-02] MEDS: HYDROmorphone 1 MG/ML 1 ML SYRINGE IV PRN ×3 (03:18→08:23)
[2017-06-02] MEDS: SODIUM CHLORIDE 0.9% 1,000 ML IV SCH (03:33)
[2017-06-02] MEDS: AMPICILLIN-SULBACTAM 3 GM in SODIUM CHLORIDE 0.9% 100 ML IVPB SCH ×4 (05:42→23:13)
[2017-06-02] MEDS: DOCUSATE 100 MG CAP PO SCH ×2 (08:23→21:54)
[2017-06-02] MEDS: HEPARIN SODIUM,PORCINE 5,000 UNIT/ML 1 ML VIAL SQ SCH ×3 (08:23→23:13)
[2017-06-02 09:27] LABS: Basophils % (A) 0 %; CH 33.2; CHCM 34.3; Eosinophils # (A) 0.3 k/uL (0-0.7); Eosinophils % (A) 3 %; HCT 44.7 % (39.0-53.0); HDW 2.32; Luc % (Auto) 2; Lymphocytes # (A) 1.4 k/uL (1.0-4.8); Lymphocytes % (A) 14 %; MCH 32.5 pg (25.0-35.0); MCHC 33.5 g/dL (31.0-37.0); Monocytes # (A) 0.6 k/uL (0-1.0); Monocytes % (A) 6 %; Neutrophils # (A) 7.3 k/uL (1.3-7.7); Neutrophils % (A) 75 %; RBC 4.61 m/uL (4.30-5.90); RDW 13.7 % (11.5-15.5); WBC 9.9 k/uL (3.8-10.6); WBC (Perox) 10.48
[2017-06-02 09:44] LABS: ALT 28 U/L (21-72); AST 23 U/L (17-59); Alkaline Phosphatase 88 U/L (38-126); Anion Gap 9 mmol/L; Blood Urea Nitrogen 3 mg/dL (9-20); Calcium 9.1 mg/dL (8.4-10.2); Carbon Dioxide 30 mmol/L (22-30); Chloride 101 mmol/L (98-107); Glucose 99 mg/dL (74-99); Non-African American GFR(MDRD) >60 (>60 ml/min/1.73 sqM); Potassium 4.3 mmol/L (3.5-5.1); Sodium 140 mmol/L (137-145); Total Bilirubin 0.6 mg/dL (0.2-1.3); Total Protein 6.2 g/dL (6.3-8.2)
--- NOTE | 2017-06-02 09:46 | P.PN ---
Subjective 56-year-old male being seen this morning on rounds. Currently sitting up in bed watching TV. Patient's tolerating a diet. No reports of nausea vomiting. Did discuss with the patient the plan of care. Advance diet and changing IV pain medication dilaudid to oral analgesics for pain control in anticipation of discharging the patient within 24 hours. Patient does state that the IV pain medication "is only thing that takes care of my pain the other stuff is like giving me Tylenol for headache" Patient denies any dizziness lightheadedness chest pain shortness of breath or abdominal discomfort. States urinating no difficulty. No bowel movements. 56-year-old male presented with a chief complaint right lower quadrant pain 3-5 day duration underwent a exploratory laparotomy and subsequent right colectomy for cecal inflammation with microperforation done on the may. Is unclear if this was due to his appendiceal stump Objective - Vital Signs Vital signs: Vital Signs Temp 97.4 F L 06/02/17 07:00 Pulse 60 06/02/17 07:00 Resp 16 06/02/17 07:00 BP 177/90 06/02/17 07:00 Pulse Ox 96 06/02/17 07:00 Intake & Output 06/01/17 06/02/17 06/02/17 18:59 06:59 18:59 Output Total 2295 1930 90 Balance -2295 -1930 -90 Output: Drainage 45 30 90 Left Lower Abdomen 45 30 90 Urine 2250 1900 Other: Voiding Method Indwelling Catheter Toilet Urinal - Exam Physical exam 56-year-old male sitting up in bed does not appear in any acute distress Lungs essentially clear adequate air movement on room air no cough noted no shortness of breath Heart S1-S2 audible regular denying chest pain Abdomen soft not distended bowel tones present surgical dressing dry SANTOS drain put out 90 mL's no document stool states no nausea vomiting tolerating diet surgical tenderness appropriate Extremities no edema noted - Labs CBC & Chem 7: 06/02/17 08:22 06/01/17 07:13 Labs: Microbiology - Last 24 Hours (Table) 05/30/17 02:55 Blood Culture - Preliminary Blood No Growth after 72 hours Assessment and Plan Plan: Impression Present on admission right lower quadrant pain suspect due to cecal inflammation with microperforation Status post May 30 exploratory laparotomy right colectomy for cecal inflammation with microperforation unclear if this was due to his appendiceal stump Present on admission leukocytosis, febrile, tachycardic meet SIRS criteria suspect early sepsis due to cecal inflammation with microperforation Present on admission severe hypokalemia potassium 3.2 Chronic nicotine dependency Plan Continue postop surgical care Pain control Resume home meds as appropriate Increase activity DVT and GI prophylaxis Patient's been counseled about stop smoking cigarettes Diet will be advanced as tolerated Further recommendations pending Continue IV Unasyn as ordered repeat labs in the morning Anticipate discharge in the next 24 hours Advance diet as tolerated Start oral analgesics for pain control The above impression and plan of care have been discussed and directed by signing physician. Key Castillo nurse practitioner acting as scribe for signing physician.
[2017-06-02] MEDS ORDERED: HYDROmorphone 1 MG/ML 1 ML SYRINGE IV PRN (09:47)
[2017-06-02] MEDS ORDERED: traMADol 50 MG TAB PO PRN (09:48)
[2017-06-02] MEDS: HYDROcodone/APAP 7.5-325MG 1 EACH TAB PO PRN ×5 (10:15→21:52)
[2017-06-02] MEDS ORDERED: traMADol 50 MG TAB PO SCH (13:00)
[2017-06-02] MEDS ORDERED: traZODone HCL 50 MG TAB PO SCH (21:30)
[2017-06-02] MEDS: FAMOTIDINE 20 MG TAB PO SCH (21:54)
[2017-06-03] MEDS: NICOTINE POLACRILEX 2 MG GUM BUCCAL PRN (03:35)
[2017-06-03] MEDS: HYDROcodone/APAP 7.5-325MG 1 EACH TAB PO PRN ×3 (03:35→13:02)
[2017-06-03] MEDS: AMPICILLIN-SULBACTAM 3 GM in SODIUM CHLORIDE 0.9% 100 ML IVPB SCH ×2 (04:53→10:03)
[2017-06-03 07:50] VITALS: BP 123/72; PULSE 107; RESP 16; TEMP 97.9
[2017-06-03] MEDS: HEPARIN SODIUM,PORCINE 5,000 UNIT/ML 1 ML VIAL SQ SCH (08:04)
[2017-06-03] MEDS: DOCUSATE 100 MG CAP PO SCH (08:05)
[2017-06-03 08:36] LABS: Basophils # (A) 0.1 k/uL (0-0.2); Basophils % (A) 1 %; CH 32.8; CHCM 33.7; Eosinophils # (A) 0.5 k/uL (0-0.7); Eosinophils % (A) 6 %; HCT 46.2 % (39.0-53.0); HDW 2.37; HGB 15.2 gm/dL (13.0-17.5); Luc # (Auto) 0.27; Luc % (Auto) 4; Lymphocytes # (A) 2.1 k/uL (1.0-4.8); Lymphocytes % (A) 27 %; MCH 32.1 pg (25.0-35.0); MCHC 32.9 g/dL (31.0-37.0); MCV 97.7 fL (80.0-100.0); Mean Platelet Volume 7.6; Monocytes # (A) 0.6 k/uL (0-1.0); Monocytes % (A) 7 %; Neutrophils # (A) 4.4 k/uL (1.3-7.7); Neutrophils % (A) 56 %; RBC 4.73 m/uL (4.30-5.90); RDW 13.5 % (11.5-15.5); WBC 7.9 k/uL (3.8-10.6); WBC (Perox) 7.71
[2017-06-03] MEDS ORDERED: NICOTINE 21MG/24HR PATCH TRANSDERM SCH (09:00)
--- NOTE | 2017-06-03 14:40 | P.DS ---
Providers Date of admission: 05/30/17 04:36 Expected date of discharge: 06/03/17 Attending physician: Kendall Grace Consults: 05/30/17 14:24 Consult Physician Routine Consulting Provider: Rashad Dickey Consult Reason/Comments: Medical management Do you want consulting provider notified?: Yes Primary care physician: Stated None Hospital Course: This a 48-year-old male who has complaints of right lower quadrant pain for 3-5 days. The patient states he had significant pain yesterday. Patient's workup suspected evidence of acute appendicitis. There is evidence of perforation with cecal thickening. The patient received IV antibiotic overnight. He states his pain has worsened. patient states he had an appendectomy performed age 12 .underwent a exploratory laparotomy and subsequent right colectomy for cecal inflammation with microperforation done on the may. Is unclear if this was due to his appendiceal stump On the day of discharge patient has a Marty-Connolly drain and that was noted to have increased output serous drainage. The attending was aware of the increased Marty-Connolly drainage. Was no redness around the Marty-Connolly drain. Surgical incision well approximated. Is tolerating a diet with no nausea no vomiting and up ambulating independently in the [place]. 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 Key Castillo nurse practitioner acting as scribe for signing physician. Patient Condition at Discharge: Fair Plan - Discharge Summary New Discharge Prescriptions: New HYDROcodone/APAP 7.5-325MG [[place] 7.5-325] 1 each PO Q4H PRN #30 tab PRN Reason: MODERATE Pain Nicotine 21Mg/24Hr Patch [Habitrol] 1 patch TRANSDERM DAILY patch Docusate [Colace] 100 mg PO BID #60 cap Acetaminophen Tab [Tylenol] 650 mg PO Q4HR PRN tab PRN Reason: Fever and/ or MILD Pain Levofloxacin [Levaquin] 500 mg PO DAILY #7 tab Continue Ibuprofen [Motrin] 400 mg PO Q6HR PRN PRN Reason: Pain Calcium Carbonate [Calcium] 600 mg PO DAILY Ascorbic Acid [Vitamin C] 500 mg PO DAILY Antabuse (Unknown Dose) 1 tab PO DAILY traZODone HCL [Desyrel] 150 mg PO HS PRN PRN Reason: Insomnia Discontinued metroNIDAZOLE [Flagyl] 500 mg PO BID Ciprofloxacin HCl [Cipro] 500 mg PO Q12HR Discharge Medication List Antabuse (Unknown Dose) 1 tab PO DAILY 05/19/17 [History] Ascorbic Acid [Vitamin C] 500 mg PO DAILY 05/19/17 [History] Calcium Carbonate [Calcium] 600 mg PO DAILY 05/19/17 [History] Ibuprofen [Motrin] 400 mg PO Q6HR PRN 05/19/17 [History] traZODone HCL [Desyrel] 150 mg PO HS PRN 05/30/17 [History] Acetaminophen Tab [Tylenol] 650 mg PO Q4HR PRN tab 06/03/17 [Rx] Docusate [Colace] 100 mg PO BID #60 cap 06/03/17 [Rx] HYDROcodone/APAP 7.5-325MG [[place] 7.5-325] 1 each PO Q4H PRN #30 tab 06/03/17 [ Rx] Levofloxacin [Levaquin] 500 mg PO DAILY #7 tab 06/03/17 [Rx] Nicotine 21Mg/24Hr Patch [Habitrol] 1 patch TRANSDERM DAILY patch 06/03/17 [Rx] Follow up Appointment(s)/Referral(s): None,Stated [Primary Care Provider] - 1-2 days Kendall Grace MD [STAFF PHYSICIAN] - 06/09/17 12:00 pm Patient Instructions/Handouts: Marty-Connolly Drain Care (DC), Colectomy (DC) Discharge Disposition: HOME SELF-CARE
== END 2017-06-03 15:09 | disposition home or self-care (01) | DRG 853 ==
LOC: EC 01:59 → 4MS4W 04:36
PROVIDERS: ADMIT Surgery; ATTEND Surgery
PROC: 0DTF0ZZ Resection of Right Large Intestine, Open Approach (ICD-10-PCS; principal; 2017-05-30 13:00)
DX: A41.9 Sepsis, unspecified organism (principal); K35.2 Acute appendicitis with generalized peritonitis; F10.20 Alcohol dependence, uncomplicated; F17.290 Nicotine dependence, other tobacco product, uncomplicated; G40.909 Epilepsy, unspecified, not intractable, without status epilepticus; M54.5 Low back pain; E87.6 Hypokalemia; Z79.899 Other long term (current) drug therapy; Z82.49 Family history of ischemic heart disease and other diseases of the circulatory system
CPT/HCPCS: 36415; 74000; 74177; 80053; 81001; 82150; 82272; 83605; 83690; 85025; 85610; 85730; 87040; 88307; 93005; 96365; 96374; 96375; 96376; 99285

== ENCOUNTER → 2017-06-18 | Outpatient (CLI) | payer OTHER ==
--- NOTE | 2017-06-18 13:40 | XR ---
EXAM TYPE: LUMBAR SPINE X RAY SERIES COMPARISON: NONE HISTORY: Back pain TECHNIQUE: 3 views are submitted. FINDINGS: Alignment is anatomic. The pedicles are intact. The transverse processes are intact. There is no s pondylolisthesis. Hypertrophic and degenerative disc disease noted with multilevel facet arthropathy . IMPRESSION: 1. Multilevel moderate to severe degenerative disc disease.
== END | disposition home or self-care (01) ==
LOC: RADXRMAIN 11:34
PROVIDERS: ATTEND Family Medicine
DX: M51.36 Other intervertebral disc degeneration, lumbar region (principal)
CPT/HCPCS: 72100

== ENCOUNTER → 2019-08-16 | Day surgery (SDC) | payer MEDICARE, OTHER ==
[2019-08-15 13:41] VITALS: BMI 23.5
[~2019-08-16] MED LIST: LACTATED RINGERS 1,000 ML IV SCH; LIDOCAINE 1% 20 ML VIAL (10MG/ML) FOR IV START INTRADERMA PRN; LIDOCAINE 1% INJ 10MG/ML (20 ML MDV) ONE; PROPOFOL 10 MG/ML 20 ML VIAL IV ONE
[2019-08-16 11:29] VITALS: RESP 16; TEMP 98.4
--- NOTE | 2019-08-16 13:08 | P.PCN ---
Date of Procedure: 08/16/19 Description of Procedure: Brief history: Patient is a pleasant scheduled for an elective upper endoscopy as well as colonoscopy as a part of evaluation of diarrhea and in bowel habits. He reported loose stool over the past few months. Denies any rectum. No prior endoscopic evaluation. Procedure performed: Esophagogastroduodenoscopy with biopsy Colonoscopy with biopsy Estimated blood loss: Minimal. Preoperative diagnosis: Diarrhea, change in bowel habits Anesthesia: [facility] [place] Procedure: After informed consent was obtained from the patient was brought into the endoscopy unit and IV sedation was administered by anesthesia under continuous monitoring. Initially upper endoscopy was done. The Olympus GF 190 video endoscope was inserted into the mouth and esophagus intubated without any difficulty and was gradually advanced into the stomach and duodenum and carefully examined. The bulb and second part of the duodenum appeared normal, with biopsies taken to rule out celiac sprue. The scope was then withdrawn into the stomach adequately insufflated with air and upon careful examination the antrum and body, cardia and fundus were significant for diffuse punctate erythema in the antrum and body suggestive of moderate gastritis of biopsies taken. The scope was then withdrawn into the esophagus. The GE junction was located at 40 cm to the incisors with biopsies taken. There was a widely patent Schatzki's ring in the distal esophagus. Small 1 cm hiatal hernia noted. It appeared regular with no erythema erosions or ulcerations. Rest of the esophagus appeared normal. Patient tolerated the procedure well. At this time the patient continued to remain sedation. Initial digital rectal examination was normal. Olympus CF 190 video colonoscope was then inserted into the rectum and gradually advanced to the cecum without any difficulty. Careful examination was performed as the scope was gradually being withdrawn. The prep was excellent. The ileocolonic anastomotic site, transverse colon, descending colon, sigmoid colon and rectum appeared normal. Retroflexion was performed in the rectum and no lesions were noted. Patient tolerated the procedure well. Impression: 1. Moderate gastritis and body biopsied. Small hiatal hernia. Biopsies of the duodenum and GE junction. Widely patent distal esophageal Schatzki. 2. Normal-appearing colon from rectum to ileocolonic anastomotic site. Anatomy consistent with patient's prior right colectomy. Biopsies taken of the transverse colon and left colon to rule out microscopic colitis. Recommendations: Findings of this examination were discussed with the patient as well as his mother. Okay to resume medications. Okay to resume diet. If biopsies are unremarkable patient may benefit from addition of cholestyramine medical regimen for bile salt diarrhea given small bowel resection as part of right colectomy in the past which was performed due to concerns over a perforated cecum. Repeat colonoscopy in 10 years or sooner pending pathology from biopsies.
[2019-08-16 13:59] VITALS: BP 135/85; PULSE 99
== END | disposition home or self-care (01) ==
LOC: ORWHC2ENDO 10:52
PROVIDERS: ATTEND Internal Medicine
DX: K52.831 Collagenous colitis (principal); K29.50 Unspecified chronic gastritis without bleeding; K20.9 Esophagitis, unspecified; K22.2 Esophageal obstruction; K44.9 Diaphragmatic hernia without obstruction or gangrene; F32.9 Major depressive disorder, single episode, unspecified; Z91.5 Personal history of self-harm; Z79.899 Other long term (current) drug therapy; Z72.0 Tobacco use; Z90.49 Acquired absence of other specified parts of digestive tract
CPT/HCPCS: 88305; 45380; 43239; J2001; J2704

== ENCOUNTER 2023-02-10 19:37 | Emergency (ER) | payer MEDICARE, OTHER ==
[2023-02-10 19:45] VITALS: RESP 18; TEMP 97.6
--- NOTE | 2023-02-10 20:51 | XR ---
EXAMINATION TYPE: XR knee complete LT DATE OF EXAM: 02/10/2023 COMPARISON: None HISTORY: Pain after falling TECHNIQUE: 3 view left knee FINDINGS: [place] are in the proximal tibia. There is narrowing of the medial compartment joint space . Medial and lateral femoral condylar spurring and medial tibial plateau spurring is present. There i s prominent soft tissue swelling. Patella resides somewhat low on the lateral view correlate for greta driceps tendon injury. No fractures are evident. Follow up studies can be performed 7-10 days from ac solomon trauma for continued pain. IMPRESSION: 1. Large joint effusion with somewhat low-lying patella. Consider additional workup with MRI of the knee. 2. Moderate degenerative changes left knee. 3. No acute fractures are identified
--- NOTE | 2023-02-10 21:18 | ED ---
Fall HPI - General Chief Complaint: Fall Stated Complaint: LEFT KNEE INJURY Time Seen by Provider: 02/10/23 19:46 Source: patient, EMS Mode of arrival: EMS - History of Present Illness Initial Comments: Patient is a 62-year-old male presenting with chief complaint of left knee pain. States that he had a trip and fall 3 days ago and has been having continued pain and swelling. He is having difficulty ambulating. No numbness or tingling. No discoloration. No head injury, loss of consciousness, or use of blood thinners. No nausea, vomiting, headache, vision or hearing changes, dizziness, neck pain. - Related Data Home Medications Medication Instructions Recorded Confirmed Terbinafine [LamISIL] 250 mg PO DAILY 08/28/17 08/16/19 Ergocalciferol [Vitamin D2] 50,000 unit PO Q7D 08/15/19 08/16/19 QUEtiapine [SEROquel] 100 mg PO HS 08/15/19 08/16/19 Venlafaxine HCl ER [Effexor Xr] 37.5 mg PO BID 08/15/19 08/16/19 Previous Rx's Medication Instructions Recorded Divalproex [Depakote] 500 mg PO BID #60 tablet. 10/23/17 Allergies Allergy/AdvReac Type Severity Reaction Status Date / Time No Known Allergies Allergy Verified 02/10/23 19:45 Review of Systems ROS Statement: Those systems with pertinent positive or pertinent negative responses have been documented in the HPI. ROS Other: All systems not noted in ROS Statement are negative. Past Medical History Past Medical History: Seizure Disorder Additional Past Medical History / Comment(s): diarrhea x 4 months,ETOH seizures last Jul 2019, "detoxing off alcohol" at [place] History of Any Multi-Drug Resistant Organisms: None Reported Past Surgical History: Appendectomy, Orthopedic Surgery Additional Past Surgical History / Comment(s): left knee Past Anesthesia/Blood Transfusion Reactions: Postoperative Nausea & Vomiting (PONV) Past Psychological History: Depression Past Alcohol Use History: Daily, Heavy Past Drug Use History: Marijuana - Past Family History Father Family Medical History: No Reported History Mother Family Medical History: CVA/TIA, Diabetes Mellitus, Myocardial Infarction (MS) General Exam Limitations: physical limitation General appearance: alert, in no apparent distress Head exam: Present: atraumatic, normocephalic, normal inspection Eye exam: Present: normal appearance, EOMI. Absent: scleral icterus, periorbital swelling Neck exam: Present: normal inspection, full ROM Left Knee exam: Present: tenderness, swelling. Absent: normal inspection, full ROM Neurological exam: Present: alert, oriented X3, CN II-XII intact Psychiatric exam: Present: normal affect, normal mood Skin exam: Present: warm, dry, intact, normal color. Absent: rash Course Vital Signs 02/10/23 02/10/23 19:42 22:03 Temperature 97.6 F Pulse Rate 101 H 82 Respiratory 18 18 Rate Blood Pressure 108/81 125/75 O2 Sat by Pulse 98 98 Oximetry Medical Decision Making - Medical Decision Making Was pt. sent in by a medical professional or institution (RACHEL Hernandes, ENGLISH INSTRUCTOR, urgent care, hospital, or snf...) When possible be specific @ -No Did you speak to anyone other than the patient for history (EMS, parent, family, police, friend...)? What history was obtained from this source @ -No Did you review nursing and triage notes (agree or disagree)? Why? @ -I reviewed and agree with nursing and triage notes Were old charts reviewed (outside hosp., previous admission, EMS record, old EKG, old radiological studies, urgent care reports/EKG's, snf records)? Report findings @ -No old charts were reviewed Differential Diagnosis (chest pain, altered mental status, abdominal pain women, abdominal pain men, vaginal bleeding, weakness, fever, dyspnea, syncope, headache, dizziness, GI bleed, back pain, seizure, CVA, palpatations, mental health, musculoskeletal)? @ -Differential Musculoskeletal Muscular strain, contusion, ligament sprain, fracture, arthritis, septic arthritis, bursitis, cellulitis, muscle spasm, nerve compression, DVT, arterial occlusion, herpes zoster, electrolyte abnormality, tumor.... This is not meant to be in all inclusive list EKG interpreted by me (3pts min.). @ -As above X-rays interpreted by me (1pt min.). @ -X-ray shows no fracture or dislocation. There is a large effusion with somewhat low-lying patella CT interpreted by me (1pt min.). @ -None done U/S interpreted by me (1pt. min.). @ -None done What testing was considered but not performed or refused? (CT, X-rays, U/S, labs)? Why? @ -None What meds were considered but not given or refused? Why? @ -None Did you discuss the management of the patient with other professionals (professionals i.e. , PA, ENGLISH INSTRUCTOR, lab, RT, psych nurse, certified social workers in health care, locomotive crane operator helper, teacher, gift officer, shelter case manager)? Give summary @ -No Was smoking cessation discussed for >3mins.? @ -No Was critical care preformed (if so, how long)? @ -No Were there social determinants of health that impacted care today? How? (Homelessness, low income, unemployed, alcoholism, drug addiction, transportation, low edu. Level, literacy, decrease access to med. care, group home, rehab)? @ -No Was there de-escalation of care discussed even if they declined (Discuss DNR or withdrawal of care, Hospice)? DNR status @ -No What co-morbidities impacted this encounter? (DM, HTN, Smoking, COPD, CAD, Cancer, CVA, ARF, Chemo, Hep., AIDS, mental health diagnosis, sleep apnea, morbid obesity)? @ -None Was patient admitted / discharged? Hospital course, mention meds given and route, prescriptions, significant lab abnormalities, going to OR and other pertinent info. @ -Patient is a 62-year-old male. Chief complaint of left knee pain after trip and fall 3 days ago. No head injury, loss of consciousness, use of blood thinners. On physical examination there is swelling and tenderness present limited range of motion. X-ray shows no fracture or dislocation, large effusion with somewhat low-lying patella is noted. Patient is placed in a knee immobilizer and provided with crutches. Instructed to follow-up with orthopedics and told to call the office in the morning to arrange an ap pointment. Follow-up with PCP. Report back to ER with any new or worsening symptoms. Discussed return parameters and answered all questions. Patient conveyed verbal understanding and agreed to the plan. I discussed this case in detail with my attending Dr. Boyle Undiagnosed new problem with uncertain prognosis? @ -No Drug Therapy requiring intensive monitoring for toxicity (Heparin, Nitro, Insulin, Cardizem)? @ -No Were any procedures done? @ -No Diagnosis/symptom? @ -Knee sprain Acute, or Chronic, or Acute on Chronic? @ -Acute Uncomplicated (without systemic symptoms) or Complicated (systemic symptoms)? @ -Uncomplicated Side effects of treatment? @ -No Exacerbation, Progression, or Severe Exacerbation? @ -No Poses a threat to life or bodily function? How? (Chest pain, USA, MS, pneumonia, PE, COPD, DKA, ARF, appy, cholecystitis, CVA, Diverticulitis, Homicidal, Suicidal, threat to staff... and all critical care pts) @ -No Disposition Clinical Impression: Knee sprain Disposition: HOME SELF-CARE Condition: Good Instructions (If sedation given, give patient instructions): Knee Sprain (ED) Additional Instructions: Follow up with orthopedics, call the office tomorrow to schedule a follow-up appointment. Report back to ER with any new or worsening symptoms. Take Motrin and Tylenol Z for pain she'll. Rest, ice, elevate the knee. Use knee immobilizer and crutches, remain nonweightbearing. Is patient prescribed a controlled substance at d/c from ED?: No Referrals: Richie Langford MD [Primary Care Provider] - 1-2 days Jessee Loomis DO [Doctor of Osteopathic Medicine] - 1-2 days Time of Disposition: 21:18
[2023-02-10 22:04] VITALS: BP 125/75; PULSE 82
== END 2023-02-10 22:26 | disposition home or self-care (01) ==
LOC: EC 19:37
DX: S83.92XA Sprain of unspecified site of left knee, initial encounter (principal); G40.909 Epilepsy, unspecified, not intractable, without status epilepticus; F32.A Depression, unspecified; F12.90 Cannabis use, unspecified, uncomplicated; Z79.899 Other long term (current) drug therapy; W01.0XXA Fall on same level from slipping, tripping and stumbling without subsequent striking against object, initial encounter
CPT/HCPCS: 73562; 99284; L1830 ×2

== ENCOUNTER 2023-07-23 16:52 | Inpatient (IN) | payer MEDICARE, OTHER ==
--- NOTE | 2023-07-23 17:41 | ED ---
General Adult HPI - General Chief complaint: Chest Pain Stated complaint: chest pain Time Seen by Provider: 07/23/23 17:10 Source: patient, RN notes reviewed, old records reviewed Mode of arrival: ambulatory Limitations: no limitations - History of Present Illness Initial comments: This is a 62-year-old male who presents emergency Department stating he had a scheduled checkup with his doctor today and when he didn't EKG to Dr. Oliavres come the emergency department. Patient does complain that over the last 2 or 3 days he had some fluttering in his chest and some shortness of breath which is abnormal. Patient states he has a heavy smoker and has been doing so for the last 45 years or so. Patient denies any actual chest pain or pressure. Patient denies headache patient denies numbness weakness per patient as lightheadedness or dizziness. Patient denies abdominal pain patient denies nausea vomiting diarrhea per patient denies any recent fever chills but does state he has a cough. She denies any swelling to the legs or calf tenderness. - Related Data Home Medications Medication Instructions Recorded Confirmed QUEtiapine [SEROquel] 100 mg PO HS 08/15/19 07/23/23 Albuterol Inhaler [Ventolin Hfa 2 puff INHALATION RT-QID PRN 07/23/23 07/23/23 Inhaler] Diclofenac Sodium [Diclofenac 2 - 4 applic TOPICAL QID PRN 07/23/23 07/23/23 Sodium 1%] Ergocalciferol [Vitamin D2 (1250 1,250 mcg PO Q28H 07/23/23 07/23/23 Mcg = 49843 Iu)] Fluticasone/Vilanterol [Breo 1 puff INHALATION RT-DAILY 07/23/23 07/23/23 Ellipta 100-25 Mcg Inhaler] HYDROcodone/APAP 7.5-325MG [[place] 1 tab PO QID PRN 07/23/23 07/23/23 7.5-325] clonazePAM 2 mg PO HS 07/23/23 07/23/23 tiZANidine [Zanaflex] 2 mg PO DAILY 07/23/23 07/23/23 Allergies Allergy/AdvReac Type Severity Reaction Status Date / Time No Known Allergies Allergy Verified 07/23/23 18:05 Review of Systems ROS Statement: Those systems with pertinent positive or pertinent negative responses have been documented in the HPI. ROS Other: All systems not noted in ROS Statement are negative. Past Medical History Past Medical History: Seizure Disorder Additional Past Medical History / Comment(s): diarrhea x 4 months,ETOH seizures last Jul 2019, "detoxing off alcohol" at [place] History of Any Multi-Drug Resistant Organisms: None Reported Past Surgical History: Appendectomy, Orthopedic Surgery Additional Past Surgical History / Comment(s): left knee Past Anesthesia/Blood Transfusion Reactions: Postoperative Nausea & Vomiting (PONV) Past Psychological History: Depression Smoking Status: Current every day smoker Past Alcohol Use History: Daily, Heavy Past Drug Use History: Marijuana - Past Family History Father Family Medical History: No Reported History Mother Family Medical History: CVA/TIA, Diabetes Mellitus, Myocardial Infarction (LA) General Exam - General Exam Comments Initial Comments: GENERAL: Patient is well-developed and well-nourished. Patient is nontoxic and well- hydrated and is in no acute distress. ENT: Neck is soft and supple. No significant lymphadenopathy is noted. Oropharynx is clear. Moist mucous membranes. Neck has full range of motion without eliciting any pain. EYES: The sclera were anicteric and conjunctiva were pink and moist. Extraocular movements were intact and pupils were equal round and reactive to light. Eyelids were unremarkable. PULMONARY: Unlabored respirations. Good breath sounds bilaterally. No audible rales rhonchi or wheezing was noted. CARDIOVASCULAR: Patient is tachycardic at about 130 beats a minute ABDOMEN: Soft and nontender with normal bowel sounds. No palpable organomegaly was noted. There is no palpable pulsatile mass. SKIN: Skin is clear with no lesions or rashes and otherwise unremarkable. NEUROLOGIC: Patient is alert and oriented x3. Cranial nerves II through XII are grossly intact. Motor and sensory are also intact. Normal speech, volume and content. Symmetrical smile. MUSCULOSKELETAL: Normal extremities with adequate strength and full range of motion. No lower extremity swelling or edema. No calf tenderness. LYMPHATICS: No significant lymphadenopathy is noted PSYCHIATRIC: Normal psychiatric evaluation. Limitations: no limitations Course Vital Signs 07/23/23 07/23/23 07/23/23 17:08 17:30 19:32 Temperature 98.2 F 97.9 F Pulse Rate 144 H 128 H 95 Respiratory 20 20 16 Rate Blood Pressure 94/68 128/108 133/95 O2 Sat by Pulse 97 97 Oximetry Medical Decision Making - Medical Decision Making EKG is interpreted by myself. EKG shows a sinus tachycardia at 127 bpm NV interval is 202 QRS is 84 QT interval 344 QTC is 419. Patient's EKG shows no ST segment elevation or depression. Was pt. sent in by a medical professional or institution (RACHEL Hernandes, DIRECTOR COMPLIANCE, urgent care, hospital, or chcf...) When possible be specific @ -Patient's primary medical care doctor sent the patient into the emergency department Did you speak to anyone other than the patient for history (EMS, parent, family, police, friend...)? What history was obtained from this source @ -No Did you review nursing and triage notes (agree or disagree)? Why? @ -I reviewed and agree with nursing and triage notes Were old charts reviewed (outside hosp., previous admission, EMS record, old EKG, old radiological studies, urgent care reports/EKG's, chcf records)? Report findings @ -I reviewed prior charts in prior laboratory this patient Differential Diagnosis (chest pain, altered mental status, abdominal pain women, abdominal pain men, vaginal bleeding, weakness, fever, dyspnea, syncope, he adache, dizziness, GI bleed, back pain, seizure, CVA, palpatations, mental health, musculoskeletal)? @ -Differential Palpitations Ventricular arrhythmias, atrial arrhythmias, myocardial infarction, anemia, thyrotoxicosis, electrolyte imbalance, hypokalemia, pulmonary embolism, p ulmonary disease, drugs, alcohol, anxiety, stress.... This is not meant to be an all-inclusive list. EKG interpreted by me (3pts min.). @ -As above X-rays interpreted by me (1pt min.). @ -Chest x-ray showed no acute abnormality CT interpreted by me (1pt min.). @ -None done U/S interpreted by me (1pt. min.). @ -None done What testing was considered but not performed or refused? (CT, X-rays, U/S, labs)? Why? @ -None What meds were considered but not given or refused? Why? @ -None Did you discuss the management of the patient with other professionals (professionals i.e. RACHEL Hernandes, DIRECTOR COMPLIANCE, lab, RT, psych nurse, social worker assistant, it security analyst, teacher, prison officer, case finisher)? Give summary @ -I spoke with Dr. Langford he agreed to admit the patient admitted the patient I wrote admitting orders Was smoking cessation discussed for >3mins.? @ -No Was critical care preformed (if so, how long)? @ -No Were there social determinants of health that impacted care today? How? (Homelessness, low income, unemployed, alcoholism, drug addiction, transpo rtation, low edu. Level, literacy, decrease access to med. care, prison, rehab)? @ -No Was there de-escalation of care discussed even if they declined (Discuss DNR or withdrawal of care, Hospice)? DNR status @ -No What co-morbidities impacted this encounter? (DM, HTN, Smoking, COPD, CAD, Cancer, CVA, ARF, Chemo, Hep., AIDS, mental health diagnosis, sleep apnea, morbid obesity)? @ -None Was patient admitted / discharged? Hospital course, mention meds given and route, prescriptions, significant lab abnormalities, going to OR and other pertinent info. @ -Patient's heart rate came down about 100 beats a minute he was feeling considerably better he stated however he continued to be nauseated. On his initial assessment he never mentioned be nauseous he stated to me that he has been vomiting for about a week now every single day and yesterday he vomited all day long. Patient states she still nauseous at this time. Patient states he has not been eating over that week as well because nothing appeals to her. Patient states he also has lost weight over the last week. I spoke with Dr. Langford and he agrees to admit the patient admitted the patient wrote admitting orders Undiagnosed new problem with uncertain prognosis? @ -No Drug Therapy requiring intensive monitoring for toxicity (Heparin, Nitro, Insulin, Cardizem)? @ -No Were any procedures done? @ -No Diagnosis/symptom? @ -Tachycardia Acute, or Chronic, or Acute on Chronic? @ -Acute Uncomplicated (without systemic symptoms) or Complicated (systemic symptoms)? @ -Complicated Side effects of treatment? @ -No Exacerbation, Progression, or Severe Exacerbation? @ -No Poses a threat to life or bodily function? How? (Chest pain, USA, [place], pneumonia, PE, COPD, DKA, ARF, appy, cholecystitis, CVA, Diverticulitis, Homicidal, Suicidal, threat to staff... and all critical care pts) @ -No Diagnosis/symptom? @ -Hypomagnesemia Acute, or Chronic, or Acute on Chronic? @ -Acute Uncomplicated (without systemic symptoms) or Complicated (systemic symptoms)? @ -Complicated Side effects of treatment? @ -none Exacerbation, Progression, or Severe Exacerbation] @ -no Poses a threat to life or bodily function? @ -no Diagnosis/symptom? @ -[place] lamia Acute, or Chronic, or Acute on Chronic? @ -Acute Uncomplicated (without systemic symptoms) or Complicated (systemic symptoms)? @ -Complicated Side effects of treatment? @ -none Exacerbation, Progression, or Severe Exacerbation] @ -no Poses a threat to life or bodily function? @ -no Diagnosis/symptom? @ -Dyspnea Acute, or Chronic, or Acute on Chronic? @ -Acute Uncomplicated (without systemic symptoms) or Complicated (systemic symptoms)? @ -Complicated Side effects of treatment? @ -none Exacerbation, Progression, or Severe Exacerbation] @ -no Poses a threat to life or bodily function? @ -no - Lab Data Result diagrams: 07/23/23 17:19 07/23/23 17:19 Lab Results 07/23/23 07/23/23 07/23/23 Range/Units 17:19 17:19 17:19 WBC 12.1 H (3.8-10.6) k/uL RBC 4.32 (4.30-5.90) m/uL Hgb 14.6 (13.0-17.5) gm/dL Hct 42.8 (39.0-53.0) % MCV 99.1 (80.0-100.0) fL MCH 33.8 (25.0-35.0) pg MCHC 34.2 (31.0-37.0) g/dL RDW 14.0 (11.5-15.5) % Plt Count 304 (150-450) k/uL MPV 7.8 Neutrophils % 73 % Lymphocytes % 20 % Monocytes % 5 % Eosinophils % 1 % Basophils % 1 % Neutrophils # 8.8 H (1.3-7.7) k/uL Lymphocytes # 2.4 (1.0-4.8) k/uL Monocytes # 0.6 (0-1.0) k/uL Eosinophils # 0.1 (0-0.7) k/uL Basophils # 0.1 (0-0.2) k/uL PT 11.3 (10.0-12.5) sec INR 1.0 (<1.2) APTT 22.4 (22.0-30.0) sec D-Dimer (<0.60) mg/L FEU Sodium 135 L (137-145) mmol/L Potassium 3.0 L (3.5-5.1) mmol/L Chloride 91 L (98-107) mmol/L Carbon Dioxide 20 L (22-30) mmol/L Anion Gap 24 mmol/L BUN 18 (9-20) mg/dL Creatinine 1.23 (0.66-1.25) mg/dL Est GFR (CKD-EPI)AfAm 72 (>60 ml/min/1.73 sqM) Est GFR (CKD-EPI)NonAf 62 (>60 ml/min/1.73 sqM) Glucose 158 H (74-99) mg/dL Calcium 10.1 (8.4-10.2) mg/dL Magnesium 1.4 L (1.6-2.3) mg/dL Total Bilirubin 1.4 H (0.2-1.3) mg/dL AST 113 H (17-59) U/L ALT 52 H (4-49) U/L Alkaline Phosphatase 132 H (38-126) U/L Troponin I (0.000-0.034) ng/mL NT-Pro-B Natriuret Pep 554 pg/mL Total Protein 8.1 (6.3-8.2) g/dL Albumin 4.8 (3.5-5.0) g/dL 07/23/23 07/23/23 Range/Units 17:19 17:19 WBC (3.8-10.6) k/uL RBC (4.30-5.90) m/uL Hgb (13.0-17.5) gm/dL Hct (39.0-53.0) % MCV (80.0-100.0) fL MCH (25.0-35.0) pg MCHC (31.0-37.0) g/dL RDW (11.5-15.5) % Plt Count (150-450) k/uL MPV Neutrophils % % Lymphocytes % % Monocytes % % Eosinophils % % Basophils % % Neutrophils # (1.3-7.7) k/uL Lymphocytes # (1.0-4.8) k/uL Monocytes # (0-1.0) k/uL Eosinophils # (0-0.7) k/uL Basophils # (0-0.2) k/uL PT (10.0-12.5) sec INR (<1.2) APTT (22.0-30.0) sec D-Dimer 0.57 (<0.60) mg/L FEU Sodium (137-145) mmol/L Potassium (3.5-5.1) mmol/L Chloride (98-107) mmol/L Carbon Dioxide (22-30) mmol/L Anion Gap mmol/L BUN (9-20) mg/dL Creatinine (0.66-1.25) mg/dL Est GFR (CKD-EPI)AfAm (>60 ml/min/1.73 sqM) Est GFR (CKD-EPI)NonAf (>60 ml/min/1.73 sqM) Glucose (74-99) mg/dL Calcium (8.4-10.2) mg/dL Magnesium (1.6-2.3) mg/dL Total Bilirubin (0.2-1.3) mg/dL AST (17-59) U/L ALT (4-49) U/L Alkaline Phosphatase (38-126) U/L Troponin I <0.012 (0.000-0.034) ng/mL NT-Pro-B Natriuret Pep pg/mL Total Protein (6.3-8.2) g/dL Albumin (3.5-5.0) g/dL Disposition Clinical Impression: Hypokalemia, Hypomagnesemia, Tachycardia, Acute vomiting, Dyspnea Disposition: ADMITTED IP TO THIS HOSP Referrals: Richie Langford MD [Primary Care Provider] - 1-2 days Time of Disposition: 20:42
[2023-07-23 17:43] LABS: Basophils # (A) 0.1 k/uL (0-0.2); Basophils % (A) 1 %; Eosinophils # (A) 0.1 k/uL (0-0.7); Eosinophils % (A) 1 %; HCT 42.8 % (39.0-53.0); HGB 14.6 gm/dL (13.0-17.5); Lymphocytes # (A) 2.4 k/uL (1.0-4.8); Lymphocytes % (A) 20 %; MCH 33.8 pg (25.0-35.0); MCHC 34.2 g/dL (31.0-37.0); MCV 99.1 fL (80.0-100.0); Mean Platelet Volume 7.8; Monocytes # (A) 0.6 k/uL (0-1.0); Monocytes % (A) 5 %; Neutrophils # (A) 8.8 k/uL (1.3-7.7); Neutrophils % (A) 73 %; Platelet Count 304 k/uL (150-450); RBC 4.32 m/uL (4.30-5.90); WBC 12.1 k/uL (3.8-10.6)
[2023-07-23 17:54] LABS: ALT 52 U/L (4-49); AST 113 U/L (17-59); African American GFR (CKD) 72 (>60 ml/min/1.73 sqM); Albumin 4.8 g/dL (3.5-5.0); Alkaline Phosphatase 132 U/L (38-126); Anion Gap 24 mmol/L; Blood Urea Nitrogen 18 mg/dL (9-20); Calcium 10.1 mg/dL (8.4-10.2); Carbon Dioxide 20 mmol/L (22-30); Chloride 91 mmol/L (98-107); Glucose 158 mg/dL (74-99); Magnesium 1.4 mg/dL (1.6-2.3); Non-African American GFR(CKD) 62 (>60 ml/min/1.73 sqM); Sodium 135 mmol/L (137-145); Total Bilirubin 1.4 mg/dL (0.2-1.3); Total Protein 8.1 g/dL (6.3-8.2)
--- NOTE | 2023-07-23 18:23 | XR ---
EXAMINATION: XR chest 2V: 07/23/2023 5:47 PM CLINICAL INDICATION: Chest Pain TECHNIQUE: Departmental protocol COMPARISON: None FINDINGS: The lungs are clear. The pleural spaces are negative. The cardiac silhouette is not enlarged. The remainder of the mediastinal silhouette is unremarkable. The skeletal structures and soft tissues are negative for acute findings. IMPRESSION: No acute radiographic process.
[2023-07-23 18:26] LABS: NT-Pro-B-Type Natriuretic Pept 554 pg/mL
[2023-07-23 18:49] LABS: Partial Thromboplastin Time 22.4 sec (22.0-30.0); Prothrombin Time 11.3 sec (10.0-12.5)
[2023-07-23] MEDS ORDERED: HYDROcodone/APAP 7.5-325MG 1 EACH TAB PO ONE (20:21)
[2023-07-23] MEDS ORDERED: SODIUM CHLORIDE 0.9% 1,000 ML IV ONE (20:35)
[2023-07-23] MEDS ORDERED: POTASSIUM CHLORIDE 20 MEQ in WATER FOR INJECTION 1 100ML.BAG IVPB STA (20:35)
[2023-07-23] MEDS ORDERED: POTASSIUM CHLORIDE ER 20 MEQ TAB.ER PO STA (20:35)
[2023-07-23] MEDS ORDERED: ONDANSETRON 4 MG/2 ML VIAL IVP STA (20:35)
[2023-07-23] MEDS ORDERED: NITROGLYCERIN SL TABS 0.4 MG TAB SUBLINGUAL PRN (20:43)
[2023-07-23] MEDS: MAGNESIUM SULFATE-D5W PMX 1 GM in DEXTROSE/WATER 1 100ML.BAG IVPB SCH ×2 (20:47→21:38)
[2023-07-24] MEDS ORDERED: ALBUTEROL NEBULIZED 2.5 MG/3 ML INHALATION PRN (10:44)
[2023-07-24] MEDS: HYDROcodone/APAP 7.5-325MG 1 EACH TAB PO PRN ×3 (11:21→21:20)
[2023-07-24 13:02] LABS: African American GFR (CKD) 69 (>60 ml/min/1.73 sqM); Anion Gap 24 mmol/L; Blood Urea Nitrogen 18 mg/dL (9-20); Calcium 10.1 mg/dL (8.4-10.2); Carbon Dioxide 20 mmol/L (22-30); Chloride 90 mmol/L (98-107); Glucose 159 mg/dL (74-99); Magnesium 1.4 mg/dL (1.6-2.3); Non-African American GFR(CKD) 60 (>60 ml/min/1.73 sqM); Sodium 134 mmol/L (137-145)
--- NOTE | 2023-07-24 13:57 | US ---
EXAMINATION TYPE: US abdomen complete DATE OF EXAM: 07/24/2023 COMPARISON: CT 2017 CLINICAL INDICATION: Male, 62 years old with history of elev, LFTs; TECHNIQUE: Multiple sonographic images of the abdomen are obtained. FINDINGS: EXAM MEASUREMENTS: Liver Length: 15.0 cm Gallbladder Wall: 0.2 cm CBD: 0.6 cm Spleen: 9.7 cm Right Kidney: 9.7 x 4.4 x 5.3 cm Left Kidney: 9.2 x 5.0 x 4.5 cm Pancreas: visualized portions wnl, limited by overlying midline bowel gas Liver: attenuating, increased echogenicity, heterogeneous Gallbladder: low level echoes seen Evidence for sonographic Carnes's sign: no CBD: borderline dilated Spleen: visualized portions wnl, limited by overlying bowel gas Right Kidney: wnl Left Kidney: 3.2 x 2.5 x 3.2cm isoechoic area mid inferior pole Upper IVC: wnl Abd Aorta: wnl IMPRESSION: 1. Liver demonstrates a pattern suggestive of underlying hepatocellular disease or hepatic steatosis. 2. Gallbladder sludge with no gallstones or gallbladder wall thickening. Common bile duct measures at the upper limits of normal. 3. There is a 3.2 cm isoechoic lesion left kidney recommend CT scan.
[2023-07-24 17:19] LABS: Hepatitis A Antibody IgM Nonreactive; Hepatitis B Core IgM Nonreactive; Hepatitis B Surface Antigen Nonreactive; Hepatitis C IgG Antibody Nonreactive
[2023-07-24] MEDS: QUEtiapine 100 MG TAB PO SCH (20:00)
[2023-07-24] MEDS: clonazePAM 1 MG TAB PO SCH (20:00)
[2023-07-24] MEDS ORDERED: Magnesium Replacement Protocol 1 EACH MISC MISCELLANE PRN (20:20)
[2023-07-24] MEDS ORDERED: Potassium Replacement Protocol 1 EACH MISC MISCELLANE PRN (20:20)
[2023-07-24] MEDS ORDERED: LORazepam 2 MG/ML INJ IV PRN ×3 (20:21)
[2023-07-24] MEDS ORDERED: POTASSIUM BICARBONATE/CIT AC 20 MEQ TABLET.EFF PO ONE (20:41)
[2023-07-24] MEDS: MAGNESIUM SULFATE-D5W PMX 1 GM in DEXTROSE/WATER 1 100ML.BAG IVPB SCH ×2 (21:21→23:09)
--- NOTE | 2023-07-24 23:08 | HP ---
HISTORY AND PHYSICAL CHIEF COMPLAINT: Dehydration, hypokalemia, hypomagnesemia, tachycardia. HISTORY OF PRESENT ILLNESS: This is another admission for this 62-year-old white male. He presented to the emergency room with weakness and dehydration as well as tachycardia. Electrolyte imbalance as noted above, was also encountered. He had a rapid heartbeat. He is a chronic alcoholic and this probably has something to do with his presenting signs and symptoms. REVIEW OF SYSTEMS: He denies any headaches, chest pain, abdominal pain, hematemesis, melena, hematochezia, jaundice, etc. Past medical history, family history and personal and social histories revealed that he is not allergic to any medications. He takes Vicodin, Breo Ellipta inhalation, Motrin, tizanidine, Seroquel, Protonix, trazodone, vitamin D. He continues to smoke and he is a heavy alcohol consumer. PHYSICAL EXAMINATION: VITAL SIGNS: Blood pressure is normal. GENERAL: He appeared to be in no acute distress. SKIN: Dry. LYMPH NODES: Not enlarged. HEAD, EARS, EYES, NOSE, MOUTH AND THROAT: Normal. NECK: Veins not distended. CHEST: Clear. CARDIAC: Demonstrates sinus tachycardia. ABDOMEN: Soft, nontender without visceromegaly or masses. Bowel sounds present. EXTREMITIES: Normal. NEUROLOGICAL: He is intact. He is admitted to the hospital with diagnoses, 1. Intractable nausea and vomiting for 2 days. 2. Dehydration. 3. Hypokalemia. 4. Hypomagnesemia. 5. Chronic obstructive pulmonary disease. 6. Alcoholism. PLAN: 1. Bed rest. 2. IV fluids. 3. IV antiemetics. 4. Correct electrolyte imbalance. MMODL / IJN: [id number] /
--- NOTE | 2023-07-24 23:50 | PN ---
PROGRESS NOTE DATE OF SERVICE: 07/24/2023 CHIEF COMPLAINT: Dehydration, intractable nausea and vomiting, tachycardia and hypokalemia with hypomagnesemia. HISTORY OF PRESENT ILLNESS: This is a gentleman who is doing a little bit better. He is slightly less nauseated. PHYSICAL EXAMINATION: VITAL SIGNS: Normal. CHEST: Clear. CARDIAC: Normal. ABDOMEN: Soft, nontender. IMPRESSION: 1. Dehydration. 2. Sinus tachycardia. 3. Hypomagnesemia. 4. Hypokalemia. 5. Alcoholism. 6. Chronic obstructive pulmonary disease. PLAN: Continue with IV fluids and antiemetics and follow laboratory studies. MMODL / IJN: [id number] /
[2023-07-25] MEDS: HYDROcodone/APAP 7.5-325MG 1 EACH TAB PO PRN ×3 (09:48→20:51)
[2023-07-25] MEDS: tiZANidine 4 MG TAB PO SCH (09:48)
[2023-07-25] MEDS: THIAMINE 100 MG TAB PO SCH (09:49)
[2023-07-25 10:13] LABS: African American GFR (CKD) >90 (>60 ml/min/1.73 sqM); Anion Gap 10 mmol/L; Blood Urea Nitrogen 14 mg/dL (9-20); Calcium 8.6 mg/dL (8.4-10.2); Carbon Dioxide 28 mmol/L (22-30); Chloride 94 mmol/L (98-107); Glucose 101 mg/dL (74-99); Magnesium 2.1 mg/dL (1.6-2.3); Non-African American GFR(CKD) >90 (>60 ml/min/1.73 sqM); Sodium 132 mmol/L (137-145)
[2023-07-25 10:38] LABS: Potassium 2.5 mmol/L (3.5-5.1)
[2023-07-25] MEDS ORDERED: SODIUM CHLORIDE 0.9% 500 ML 500 ML IV ONE ×2 (11:31→12:22)
[2023-07-25] MEDS: POTASSIUM CHLORIDE 20 MEQ in WATER FOR INJECTION 1 100ML.BAG IVPB SCH ×3 (11:33→18:18)
[2023-07-25] MEDS: POTASSIUM CHLORIDE ER 20 MEQ TAB.ER PO SCH ×3 (11:34→17:02)
[2023-07-25 13:21] VITALS: BMI 23.6
--- NOTE | 2023-07-25 14:06 | P.CRDCN ---
History of Present Illness Consult date: 07/25/23 History of present illness: History of Present Illness: The patient is a 62-year-old male with a history of chronic tobacco and alcohol intake who presented with symptoms of fatigue, dyspnea, nausea and vomiting for a few weeks and tachycardia. Cardiology consultation was requested because of low blood pressure. The patient is in sinus mechanism, his blood pressure is in the high 80s but he does not feel any significant symptoms. He has chronic dyspnea on exertion. He has occasional chest discomfort but has not had any prior cardiac workup. He denies any clear PND or orthopnea. He has a prior history of peripheral edema. He has been consuming alcohol on a daily basis and smokes daily. He has no history of hypertension, diabetes or hyperlipidemia. On presentation he had evidence of hypokalemia and hypomagnesemia was abnormal liver function test. His troponin and NT proBNP were normal. His EKG on admission showed sinus mechanism with left axis deviation and possible inferior wall myocardial infarction. He was tachycardic at that time. Medications: Colonic pain, Seroquel, Zanaflex, Ventolin Review of Systems: Respiratory: He has chronic dyspnea on exertion and cough GI: He had the nausea and vomiting for the last few weeks : No hematuria or dysuria. Nervous System: No stroke or seizure. Physical Examination: 62-year-old male, alert oriented no apparent distress, appears older than stated age ,Blood pressure 87/55, Heart rate 70 Head: Normocephalic. Eyes: Sclerae nonicteric. Neck: Good carotid upstroke with no bruit Lungs: Decreased air exchange bilaterally, no wheezes Heart: Regular rate and rhythm, S1-S2, no S3, no rub. No murmur. Abdomen: Soft nontender, positive bowel sounds no organomegaly. Extremities: No edema, intact distal pulses. Labs: Potassium 2.5, BUN 14, creatinine 0.76, sodium 132. His magnesium today is 2.1. On presentation it was 1.4. AST 113, ALT 52. Troponin less than 0.012. NT proBNP 554. Chest x-ray with no acute infiltrate EKG: Sinus tachycardia with nonspecific ST changes, cannot exclude inferior wall myocardial infarction Impression: 1. Hypotension probably related to dehydration with nausea and vomiting for a few weeks. 2. Chronic alcohol intake 3. Chronic tobacco use 4. Episodes of chest discomfort of unclear etiology with an abnormal EKG 5. Hypokalemia related to the nausea and vomiting 6. Abnormal liver function test segment to the alcohol intake Plan: 1. IV fluid 2. Obtain an echocardiogram with Doppler 3. Replace potassium 4. Follow renal functions 5. After stabilization patient may require further cardiac workup, probable a stress test. 6. Thank you for this consult we will follow with you. Past Medical History Past Medical History: Seizure Disorder Additional Past Medical History / Comment(s): diarrhea x 4 months,ETOH seizures last Jul 2019 while detoxing from alcohol at [place] History of Any Multi-Drug Resistant Organisms: None Reported Past Surgical History: Appendectomy, Orthopedic Surgery Additional Past Surgical History / Comment(s): left knee Past Anesthesia/Blood Transfusion Reactions: Postoperative Nausea & Vomiting (PONV) Past Psychological History: Depression Smoking Status: Current every day smoker Past Alcohol Use History: Daily, Heavy Additional Past Alcohol Use History / Comment(s): drinks 8 beers per days, smokes half a pack a day Past Drug Use History: Marijuana Additional Drug Use History / Comment(s): marijuana daily - Past Family History Father Family Medical History: No Reported History Mother Family Medical History: CVA/TIA, Diabetes Mellitus, Myocardial Infarction ([place]) Medications and Allergies Home Medications Medication Instructions Recorded Confirmed Type QUEtiapine [SEROquel] 100 mg PO HS 08/15/19 07/23/23 History Albuterol Inhaler [Ventolin Hfa 2 puff INHALATION RT-QID PRN 07/23/23 07/23/23 History Inhaler] Diclofenac Sodium [Diclofenac 2 - 4 applic TOPICAL QID PRN 07/23/23 07/23/23 History Sodium 1%] Ergocalciferol [Vitamin D2 (1250 1,250 mcg PO Q28H 07/23/23 07/23/23 History Mcg = 62603 Iu)] Fluticasone/Vilanterol [Breo 1 puff INHALATION RT-DAILY 07/23/23 07/23/23 History Ellipta 100-25 Mcg Inhaler] HYDROcodone/APAP 7.5-325MG [[place] 1 tab PO QID PRN 07/23/23 07/23/23 History 7.5-325] clonazePAM 2 mg PO HS 07/23/23 07/23/23 History tiZANidine [Zanaflex] 2 mg PO DAILY 07/23/23 07/23/23 History Allergies Allergy/AdvReac Type Severity Reaction Status Date / Time No Known Allergies Allergy Verified 07/23/23 18:05 Physical Exam Vitals: Vital Signs Temp Pulse Pulse Resp BP BP Pulse Ox 07/25/23 13:12 70 18 87/55 97 07/25/23 13:02 69 18 82/51 98 07/25/23 12:59 73 18 78/48 98 07/25/23 12:41 66 18 86/53 100 07/25/23 12:33 81 18 79/51 98 07/25/23 12:30 77 18 78/52 98 07/25/23 12:28 75 18 84/52 99 07/25/23 12:25 83 18 86/54 98 07/25/23 12:24 80/51 07/25/23 12:15 96 18 73/38 99 07/25/23 11:24 97.7 F 77 18 88/58 98 07/25/23 08:03 93 L 07/25/23 07:24 97.9 F 83 18 120/76 100 07/25/23 03:40 98.3 F 76 18 108/69 96 07/24/23 23:26 98.9 F 95 16 100/65 99 07/24/23 21:06 88 07/24/23 20:58 85 07/24/23 19:17 98.2 F 79 18 137/83 99 07/24/23 17:28 98.2 F 68 16 140/82 100 07/24/23 15:00 98.0 F 83 16 143/90 100 07/24/23 14:07 97.6 F 72 16 153/90 100 Intake and Output 07/24/23 07/25/23 07/25/23 22:59 06:59 14:59 Intake Total 240 Balance 240 Intake: Oral 240 Other: Voiding Method Toilet # Voids 1 Weight 70.307 kg 70.307 kg Results 07/23/23 17:19 07/25/23 08:47 Comprehensive Metabolic Panel 07/25/23 Range/Units 08:47 Sodium 132 L (137-145) mmol/L Potassium 2.5 L* (3.5-5.1) mmol/L Chloride 94 L (98-107) mmol/L Carbon Dioxide 28 (22-30) mmol/L BUN 14 (9-20) mg/dL Creatinine 0.76 (0.66-1.25) mg/dL Glucose 101 H (74-99) mg/dL Calcium 8.6 (8.4-10.2) mg/dL Current Medications Generic Name Dose Route Start Last Admin Trade Name Freq PRN Reason Stop Dose Admin Hydrocodone Bitart/Acetaminophen 1 each 07/24/23 10:44 07/25/23 09:48 Hydrocodone/Apap 7.5-325mg 1 Each Tab PO 1 each QID PRN Administration Pain Albuterol Sulfate 2.5 mg 07/24/23 10:44 07/24/23 20:56 Albuterol Nebulized 2.5 Mg/3 Ml INHALATION 2.5 mg RT-QID PRN Administration Shortness Of Breath Clonazepam 2 mg 07/24/23 21:00 07/24/23 20:00 Clonazepam 1 Mg Tab PO 2 mg HS VANNA Administration Potassium Chloride 20 meq/ IV 100 mls @ 50 mls/hr 07/25/23 11:30 07/25/23 11:33 Solution IVPB 07/25/23 17:29 50 mls/hr Q2H VANNA Administration Protocol Sodium Chloride 1,000 mls @ 100 mls/hr 07/25/23 14:00 Saline 0.9% IV 07/26/23 00:01 .Q10H VANNA Lorazepam 1 mg 07/24/23 20:21 Lorazepam 2 Mg/Ml Inj IV Q1HR PRN CIWA 10 to 15 Lorazepam 1 mg 07/24/23 20:21 Lorazepam 2 Mg/Ml Inj IV Q2HR PRN CIWA 8 or 9 Lorazepam 2 mg 07/24/23 20:21 Lorazepam 2 Mg/Ml Inj IV 07/26/23 20:21 Q10M PRN CIWA 16 or higher Miscellaneous Information 1 each 07/24/23 20:20 Potassium Replacement Protocol 1 Each Misc MISCELLANE DAILY PRN Per Protocol Protocol Miscellaneous Information 1 each 07/24/23 20:20 Magnesium Replacement Protocol 1 Each Misc MISCELLANE DAILY PRN Per Protocol Protocol Nitroglycerin 0.4 mg 07/23/23 20:43 Nitroglycerin Sl Tabs 0.4 Mg Tab SUBLINGUAL Q5M PRN Chest Pain Potassium Chloride 20 meq 07/25/23 12:00 07/25/23 11:34 Potassium Chloride Er 20 Meq Tab.Er PO 07/25/23 16:01 20 meq Q2HR VANNA Administration Protocol Quetiapine Fumarate 100 mg 07/24/23 21:00 07/24/23 20:00 Quetiapine 100 Mg Tab PO 100 mg HS VANNA Administration Thiamine HCl 100 mg 07/25/23 09:00 07/25/23 09:49 Thiamine 100 Mg Tab PO 100 mg DAILY VANNA Administration Tizanidine HCl 2 mg 07/25/23 09:00 07/25/23 09:48 Tizanidine 4 Mg Tab PO 2 mg DAILY VANNA Administration Intake and Output 07/24/23 07/25/23 07/25/23 22:59 06:59 14:59 Intake Total 240 Balance 240 Intake: Oral 240 Other: Voiding Method Toilet # Voids 1 Weight 70.307 kg 70.307 kg Patient Weight 07/26/23 05:59 Weight 70.307 kg 07/23/23 17:19 07/25/23 08:47
[2023-07-25] MEDS: SODIUM CHLORIDE 0.9% 1,000 ML IV SCH ×2 (15:54→23:22)
--- NOTE | 2023-07-25 18:50 | PN ---
PROGRESS NOTE CHIEF COMPLAINT: Electrolyte imbalance, hypotension. HISTORY OF PRESENT ILLNESS: This gentleman suddenly dropped his blood pressure. He is not having any chest pain. It is down to 78/48 with a pulse of 73. He is not lightheaded. He is nauseated and vomiting some. His potassium 2.5. PHYSICAL EXAMINATION: CHEST: Clear. CARDIAC: Normal. ABDOMEN: Soft and nontender. IMPRESSION: 1. Electrolyte imbalance. 2. Hypotension. 3. Nausea and vomiting. 4. Hypokalemia. PLAN: 1. Continue with IV fluids. 2. Troponin. 3. EKG. 4. Cardiology consult. MMODL / IJN: [id number] /
[2023-07-25] MEDS: QUEtiapine 100 MG TAB PO SCH (22:10)
[2023-07-25] MEDS: clonazePAM 1 MG TAB PO SCH (22:10)
[2023-07-25 23:35] VITALS: RESP 18
[2023-07-26 00:14] LABS: African American GFR (CKD) >90 (>60 ml/min/1.73 sqM); Anion Gap 10 mmol/L; Blood Urea Nitrogen 10 mg/dL (9-20); Calcium 8.6 mg/dL (8.4-10.2); Carbon Dioxide 22 mmol/L (22-30); Chloride 102 mmol/L (98-107); Glucose 99 mg/dL (74-99); Non-African American GFR(CKD) >90 (>60 ml/min/1.73 sqM); Potassium 3.3 mmol/L (3.5-5.1); Sodium 134 mmol/L (137-145)
--- NOTE | 2023-07-26 00:55 | CA ---
Transthoracic Echo Report Name: [place] Age: 62 Gender: M : 1960 Exam Date: 07/25/2023 16:22 Exam Location: [facility] Ht (in): 68 Wt (lb): 155 Ordering Physician: Richie Langford MD Attending/Referring Phys: Primitivo ARRINGTON Level Vial Grinder Debora Martin RDCS Procedure CPT: Indications: low blood pressure Cardiac Hx: Technical Quality: Fair Contrast 1: Total Dose (mL): Contrast 2: Total Dose (mL): MEASUREMENTS (Male / Female) Normal Values 2D ECHO LV Diastolic Diameter PLAX 3.9 cm 4.2 - 5.9 / 3.9 - 5.3 cm LV Systolic Diameter PLAX 2.3 cm IVS Diastolic Thickness 1.0 cm 0.6 - 1.0 / 0.6 - 0.9 cm LVPW Diastolic Thickness 0.9 cm 0.6 - 1.0 / 0.6 - 0.9 cm LV Relative Wall Thickness 0.5 RV Internal Dim ED PLAX 3.1 cm LVOT Diameter 2.2 cm LA Volume 55.7 cm??? 18 - 58 / 22 - 52 cm??? LA Volume Index 30.2 cm???/m??? 16 - 28 cm???/m??? M-MODE Aortic Root Diameter MM 3.2 cm LA Systolic Diameter MM 4.5 cm LA Ao Ratio MM 1.4 AV Cusp Separation MM 1.3 cm DOPPLER AV Peak Velocity 201.3 cm/s AV Peak Gradient 16.2 mmHg AV Mean Velocity 143.6 cm/s AV Mean Gradient 9.0 mmHg AV Velocity Time Integral 38.8 cm AI Peak Velocity 311.3 cm/s AI Peak Gradient 38.8 mmHg AI Pressure Half Time 913.6 ms LVOT Peak Velocity 135.7 cm/s LVOT Peak Gradient 7.4 mmHg LVOT Velocity Time Integral 29.6 cm LVOT Stroke Volume 109.2 cm??? LVOT Stroke Volume Index 59.6 ml/m??? LVOT Cardiac Index 5694.8 cm???/min???m??? AV Area Cont Eq vti 2.8 cm??? AV Area Cont Eq pk 2.5 cm??? MV Area PHT 2.6 cm??? Mitral E Point Velocity 78.1 cm/s Mitral A Point Velocity 109.0 cm/s Mitral E to A Ratio 0.7 MV Deceleration Time 294.6 ms MV E' Velocity 6.4 cm/s Mitral E to MV E' Ratio 12.3 TR Peak Velocity 169.9 cm/s TR Peak Gradient 11.5 mmHg Right Ventricular Systolic Press 16.5 mmHg FINDINGS Left Ventricle Normal left ventricular systolic function with no obvious regional wall motion abnormalities. Left ventricular cavity size normal. Left ventricular wall thickness normal. Left ventricular ejection fraction is estimated at 55 to 60 %. Right Ventricle Normal right ventricular size and function. Right ventricular systolic pressure within normal limits. Right Atrium Normal right atrial size. Left Atrium Mildly increased left atrial volume. Mitral Valve Structurally normal mitral valve. No mitral stenosis, regurgitation or prolapse. Aortic Valve Trileaflet aortic valve. Aortic valve sclerosis. Mild aortic regurgitation. Tricuspid Valve Structurally normal tricuspid valve. Mild tricuspid regurgitation. Pulmonic Valve Structurally normal pulmonic valve. Pericardium No pericardial effusion. Echo free space anterior to the right ventricle likely represents a fat pad. Aorta Normal size aortic root and proximal ascending aorta. CONCLUSIONS 1. Normal left ventricular size and systolic function 2. Mild aortic and tricuspid regurgitation Previewed by: Dr. Taya Ramírez MD (Electronically Signed) Final Date: 26 July 2023 00:54
[2023-07-26] MEDS: THIAMINE 100 MG TAB PO SCH (08:31)
[2023-07-26] MEDS: HYDROcodone/APAP 7.5-325MG 1 EACH TAB PO PRN ×3 (08:31→23:14)
[2023-07-26] MEDS: tiZANidine 4 MG TAB PO SCH (08:32)
[2023-07-26 10:16] LABS: African American GFR (CKD) >90 (>60 ml/min/1.73 sqM); Anion Gap 9 mmol/L; Blood Urea Nitrogen 8 mg/dL (9-20); Calcium 8.6 mg/dL (8.4-10.2); Carbon Dioxide 23 mmol/L (22-30); Chloride 103 mmol/L (98-107); Glucose 115 mg/dL (74-99); Non-African American GFR(CKD) >90 (>60 ml/min/1.73 sqM); Potassium 3.4 mmol/L (3.5-5.1); Sodium 135 mmol/L (137-145)
[2023-07-26] MEDS: POTASSIUM CHLORIDE ER 20 MEQ TAB.ER PO SCH ×2 (11:20→13:10)
--- NOTE | 2023-07-26 12:50 | P.PN ---
Subjective Progress Note Date: 07/26/23 PROGRESS NOTE The patient is a 62-year-old male with a history of chronic tobacco and alcohol intake who presented with symptoms of fatigue, dyspnea, nausea and vomiting for a few weeks and tachycardia. Cardiology consultation was requested because of low blood pressure. The patient is in sinus mechanism, his blood pressure is in the high 80s but he does not feel any significant symptoms. He has chronic dyspnea on exertion. He has occasional chest discomfort but has not had any prior cardiac workup. He denies any clear PND or orthopnea. He has a prior history of peripheral edema. He has been consuming alcohol on a daily basis and smokes daily. He has no history of hypertension, diabetes or hyperlipidemia. On presentation he had evidence of hypokalemia and hypomagnesemia was abnormal liver function test. His troponin and NT proBNP were normal. His EKG on admission showed sinus mechanism with left axis deviation and possible inferior wall myocardial infarction. He was tachycardic at that time. July 26: The patient continues to feel fatigued he had no further nausea or vomiting. His blood pressure has been low earlier today but was better yesterday was IV fluid. He continues to be in sinus mechanism, there is no episodes of atrial fibrillation. His echo showed normal left ventricle systolic function with mild aortic and tricuspid regurgitation. Medications: Seroquel, clonazepam, tizanidine PHYSICAL EXAMINATION: Blood pressure 87/59, was 117/80 earlier heart rate 69 LUNGS: Clear to auscultation HEART: Regular rate and rhythm, S1, S2. No S3. Systolic ejection murmur ABDOMEN: Soft, nontender, no organomegaly EXTREMETIES: No edema LAB: Potassium 3.4, BUN 8, creatinine 0.78 IMPRESSION: 1. Hypotension probably secondary to the nausea and vomiting and prior alcohol intake 2. Hypokalemia improving 3. Chronic tobacco use 4. Chronic alcohol intake PLAN: 1. IV fluid 2. Follow renal functions 3. Follow potassium 4. Depending on his progress further recommendations will be made Objective - Vital Signs Vital signs: Vital Signs Temp 97.8 F 07/26/23 11:13 Pulse 69 07/26/23 11:13 Resp 18 07/26/23 11:13 BP 87/59 07/26/23 11:13 Pulse Ox 98 07/26/23 11:13 FiO2 Intake & Output 07/25/23 07/26/23 07/26/23 19:59 06:59 18:59 Intake Total 118 Output Total Balance 118 Weight Intake: Oral 118 Output: Urine Other: Voiding Method Urinal # Voids - Labs CBC & Chem 7: 07/23/23 17:19 07/26/23 09:09 Labs: Abnormal Lab Results - Last 24 Hours (Table) 07/25/23 07/26/23 Range/Units 23:52 09:09 Sodium 134 L 135 L (137-145) mmol/L Potassium 3.3 L 3.4 L (3.5-5.1) mmol/L BUN 8 L (9-20) mg/dL Glucose 115 H (74-99) mg/dL
[2023-07-26] MEDS: SODIUM CHLORIDE 0.9% 1,000 ML IV SCH ×2 (13:11→23:30)
[2023-07-26 14:40] LABS: HCT 31.2 % (39.0-53.0); MCH 33.9 pg (25.0-35.0); MCHC 33.1 g/dL (31.0-37.0); MCV 102.4 fL (80.0-100.0); Macrocytosis Slight; Mean Platelet Volume 8.3; Platelet Count 201 k/uL (150-450); RBC 3.05 m/uL (4.30-5.90); RDW 14.1 % (11.5-15.5); WBC 6.5 k/uL (3.8-10.6)
[2023-07-26 14:52] LABS: HGB 10.3 gm/dL (13.0-17.5)
[2023-07-26] MEDS: MAGNESIUM SULFATE-D5W PMX 1 GM in DEXTROSE/WATER 1 100ML.BAG IVPB SCH ×2 (15:58→17:29)
--- NOTE | 2023-07-26 19:13 | PN ---
PROGRESS NOTE DATE OF SERVICE: 07/26/2023 CHIEF COMPLAINT: Hypotension and electrolyte imbalance. HISTORY OF PRESENT ILLNESS: This gentleman is improved. His blood pressures have come back up. His vital signs have been more stable. REVIEW OF SYSTEMS: He has no complaints. He has had no weakness, confusion, chest pain, etc. PHYSICAL EXAMINATION: CHEST: Clear. CARDIAC: Normal. ABDOMEN: Soft and nontender. IMPRESSION: 1. Electrolyte imbalance. 2. Hypotension. 3. Bradycardia. PLAN: Increase activity, and if remains stable, probably home tomorrow. MMODL / IJN: [id number] /
[2023-07-26] MEDS: clonazePAM 1 MG TAB PO SCH (20:20)
[2023-07-26] MEDS: QUEtiapine 100 MG TAB PO SCH (20:20)
[2023-07-27] MEDS: tiZANidine 4 MG TAB PO SCH (08:21)
[2023-07-27] MEDS: HYDROcodone/APAP 7.5-325MG 1 EACH TAB PO PRN (08:21)
[2023-07-27] MEDS: THIAMINE 100 MG TAB PO SCH (08:21)
--- NOTE | 2023-07-27 12:47 | P.PN ---
Subjective Progress Note Date: 07/27/23 PROGRESS NOTE The patient is a 62-year-old male with a history of chronic tobacco and alcohol intake who presented with symptoms of fatigue, dyspnea, nausea and vomiting for a few weeks and tachycardia. Cardiology consultation was requested because of low blood pressure. The patient is in sinus mechanism, his blood pressure is in the high 80s but he does not feel any significant symptoms. He has chronic dyspnea on exertion. He has occasional chest discomfort but has not had any prior cardiac workup. He denies any clear PND or orthopnea. He has a prior history of peripheral edema. He has been consuming alcohol on a daily basis and smokes daily. He has no history of hypertension, diabetes or hyperlipidemia. On presentation he had evidence of hypokalemia and hypomagnesemia was abnormal liver function test. His troponin and NT proBNP were normal. His EKG on admission showed sinus mechanism with left axis deviation and possible inferior wall myocardial infarction. He was tachycardic at that time. July 26: The patient continues to feel fatigued he had no further nausea or vomiting. His blood pressure has been low earlier today but was better yesterday was IV fluid. He continues to be in sinus mechanism, there is no episodes of atrial fibrillation. His echo showed normal left ventricle systolic function with mild aortic and tricuspid regurgitation. 07/27 Patient is seen today in follow-up. He states he is feeling better today. Heart rate is in the 60s and a sinus rhythm and blood pressure is improved at 122/76. No repeat blood work today. PHYSICAL EXAMINATION: LUNGS: Clear to auscultation HEART: Regular rate and rhythm, S1, S2. No S3. Systolic ejection murmur ABDOMEN: Soft, nontender, no organomegaly EXTREMETIES: No edema IMPRESSION: 1. Hypotension probably secondary to the nausea and vomiting and prior alcohol intake 2. Hypokalemia improving 3. Chronic tobacco use 4. Chronic alcohol intake PLAN: Hypotension and tachycardia are improved. Magnesium and potassium have been replaced as of yesterday. Increase activity if patient does well, discharged home within 24 hours Nurse practitioner note has been reviewed, I agree with the documented findings and plan of care. Patient was seen and examined. Objective - Vital Signs Vital signs: Vital Signs Temp 97.3 F L 07/27/23 08:17 Pulse 96 07/27/23 08:25 Resp 18 07/27/23 04:00 BP 122/76 07/27/23 08:17 Pulse Ox 93 L 07/27/23 09:42 FiO2 Intake & Output 07/26/23 07/27/23 07/27/23 18:59 06:59 18:59 Intake Total 580 777 480 Output Total 575 440 Balance 5 337 480 Intake: Oral 580 777 480 Output: Urine 575 440 Other: Voiding Method Urinal Urinal Toilet # Voids 1 1 - Labs CBC & Chem 7: 07/26/23 14:16 07/26/23 09:09 Labs: Abnormal Lab Results - Last 24 Hours (Table) 07/26/23 07/26/23 Range/Units 14:16 14:16 RBC 3.05 L (4.30-5.90) m/uL Hgb 10.3 L D (13.0-17.5) gm/dL Hct 31.2 L (39.0-53.0) % MCV 102.4 H (80.0-100.0) fL Magnesium 1.4 L (1.6-2.3) mg/dL Microbiology - Last 24 Hours (Table) 07/25/23 12:53 Blood Culture - Preliminary Blood
[2023-07-27 13:38] LABS: ALT 33 U/L (4-49); AST 68 U/L (17-59); African American GFR (CKD) >90 (>60 ml/min/1.73 sqM); Albumin 2.9 g/dL (3.5-5.0); Alkaline Phosphatase 121 U/L (38-126); Anion Gap 9 mmol/L; Blood Urea Nitrogen 10 mg/dL (9-20); Calcium 8.6 mg/dL (8.4-10.2); Carbon Dioxide 23 mmol/L (22-30); Chloride 102 mmol/L (98-107); Glucose 96 mg/dL (74-99); Non-African American GFR(CKD) >90 (>60 ml/min/1.73 sqM); Sodium 134 mmol/L (137-145); Total Bilirubin 0.3 mg/dL (0.2-1.3); Total Protein 5.3 g/dL (6.3-8.2)
[2023-07-27] MEDS: QUEtiapine 100 MG TAB PO SCH (20:48)
[2023-07-27] MEDS: MAGNESIUM SULFATE-D5W PMX 1 GM in DEXTROSE/WATER 1 100ML.BAG IVPB SCH ×2 (22:04→23:15)
[2023-07-28] MEDS: MAGNESIUM SULFATE-D5W PMX 1 GM in DEXTROSE/WATER 1 100ML.BAG IVPB SCH ×2 (02:02→03:41)
[2023-07-28 04:02] VITALS: TEMP 98.1
[2023-07-28 08:11] VITALS: BP 148/89; PULSE 88
[2023-07-28] MEDS: THIAMINE 100 MG TAB PO SCH (08:52)
[2023-07-28] MEDS ORDERED: amLODIPine 5 MG TAB PO SCH (12:30)
--- NOTE | 2023-07-28 13:55 | P.PN ---
Subjective Progress Note Date: 07/28/23 PROGRESS NOTE The patient is a 62-year-old male with a history of chronic tobacco and alcohol intake who presented with symptoms of fatigue, dyspnea, nausea and vomiting for a few weeks and tachycardia. Cardiology consultation was requested because of low blood pressure. The patient is in sinus mechanism, his blood pressure is in the high 80s but he does not feel any significant symptoms. He has chronic dyspnea on exertion. He has occasional chest discomfort but has not had any prior cardiac workup. He denies any clear PND or orthopnea. He has a prior history of peripheral edema. He has been consuming alcohol on a daily basis and smokes daily. He has no history of hypertension, diabetes or hyperlipidemia. On presentation he had evidence of hypokalemia and hypomagnesemia was abnormal liver function test. His troponin and NT proBNP were normal. His EKG on admission showed sinus mechanism with left axis deviation and possible inferior wall myocardial infarction. He was tachycardic at that time. July 26: The patient continues to feel fatigued he had no further nausea or vomiting. His blood pressure has been low earlier today but was better yesterday was IV fluid. He continues to be in sinus mechanism, there is no episodes of atrial fibrillation. His echo showed normal left ventricle systolic function with mild aortic and tricuspid regurgitation. 07/27 Patient is seen today in follow-up. He states he is feeling better today. Heart rate is in the 60s and a sinus rhythm and blood pressure is improved at 122/76. No repeat blood work today. 07/28 Patient continues to feel improved. Hypotension has resolved and blood pressure is coming up this morning 140/89, heart rate is in the 70s and 80s. Magnesium was 1.8. Magnesium last night was 1.2 status post replacement. PHYSICAL EXAMINATION: LUNGS: Clear to auscultation HEART: Regular rate and rhythm, S1, S2. No S3. Systolic ejection murmur ABDOMEN: Soft, nontender, no organomegaly EXTREMETIES: No edema IMPRESSION: 1. Hypotension probably secondary to the nausea and vomiting and prior alcohol intake 2. Hypokalemia improving 3. Chronic tobacco use 4. Chronic alcohol intake 5. Hypertension PLAN: Add Norvasc 5 mg daily Patient is cleared for discharge Cardiology will sign off this case and follow on an as-needed basis. Please reconsult for any new concerns. Patient may follow-up in the office in one to 2 weeks. Nurse practitioner note has been reviewed, I agree with the documented findings and plan of care. Patient was seen and examined. Objective - Vital Signs Vital signs: Vital Signs Temp 98.1 F 07/28/23 03:45 Pulse 88 07/28/23 07:59 Resp 18 07/28/23 07:59 BP 148/89 07/28/23 07:59 Pulse Ox 98 07/28/23 07:59 FiO2 Intake & Output 07/27/23 07/28/23 07/28/23 18:59 06:59 18:59 Intake Total 1680 240 Output Total 1750 450 Balance 1680 -1750 -210 Intake: Oral 1680 240 Output: Urine 1750 450 Other: Voiding Method Toilet Toilet # Voids 1 - Labs CBC & Chem 7: 07/26/23 14:16 07/27/23 12:57 Labs: Abnormal Lab Results - Last 24 Hours (Table) 07/27/23 07/27/23 Range/Units 12:57 20:22 Sodium 134 L (137-145) mmol/L Magnesium 1.2 L (1.6-2.3) mg/dL AST 68 H (17-59) U/L Total Protein 5.3 L (6.3-8.2) g/dL Albumin 2.9 L (3.5-5.0) g/dL Microbiology - Last 24 Hours (Table) 07/25/23 12:53 Blood Culture - Preliminary Blood
--- NOTE | 2023-07-29 12:49 | DS ---
DISCHARGE SUMMARY CHIEF COMPLAINT: Tachycardia, electrolyte imbalance. HISTORY OF PRESENT ILLNESS AND PHYSICAL EXAMINATION: Details of this man's history and physical can be found in the initial workup. LABORATORY STUDIES: While he was in the hospital, he had laboratory studies, details of which can be found in the laboratory section of his chart. COURSE IN THE HOSPITAL: After admission, he was placed on bedrest, started on intravenous fluids and IV electrolytes were administered, and his potassium eventually came up. Magnesium was also corrected. He complained a lot of his back pain in the hospital, was getting significant amounts of analgesics and the sedating drugs and became quite lethargic, these were stopped. He was stable and doing well. It was felt that he could be discharged on the and he will follow up in the office. FINAL DIAGNOSES: 1. Sinus tachycardia. 2. Electrolyte imbalance. 3. Hypomagnesemia. 4. Alcoholism. 5. L-spine arthritis. OPERATIONS: None. CONSULTATION: None. CONDITION: He is improved. MMLORRIE / NOAH: [id number] /
--- NOTE | 2023-07-29 13:31 | PN ---
PROGRESS NOTE DATE OF SERVICE: 07/27/2023 CHIEF COMPLAINT: Electrolyte imbalance, alcoholism, COPD and back pain. HISTORY OF PRESENT ILLNESS: This gentleman is lethargic. He is on a number of medications that could create this and they will be stopped. PHYSICAL EXAMINATION: LUNGS: He has good breath sounds bilaterally. CARDIAC: Normal. VITAL SIGNS: Normal. IMPRESSION: 1. Tachycardia. 2. Hypomagnesemia. 3. Hypokalemia. 4. Back pain. 5. Alcoholism. 6. Lethargy. PLAN: Decrease or stop medications that could be making him lethargic. MMODL / IJN: [id number] /
== END 2023-07-28 15:35 | disposition home or self-care (01) | DRG 641 ==
LOC: EC 16:52 → 3SCARD 20:44
PROVIDERS: ADMIT Family Medicine; ATTEND Family Medicine
DX: E86.0 Dehydration (principal); I95.9 Hypotension, unspecified; E83.42 Hypomagnesemia; F10.20 Alcohol dependence, uncomplicated; E87.6 Hypokalemia; R94.5 Abnormal results of liver function studies; G40.909 Epilepsy, unspecified, not intractable, without status epilepticus; I08.2 Rheumatic disorders of both aortic and tricuspid valves; I10 Essential (primary) hypertension; J44.9 Chronic obstructive pulmonary disease, unspecified; Z82.49 Family history of ischemic heart disease and other diseases of the circulatory system; Z28.310 Unvaccinated for COVID-19; Z28.21 Immunization not carried out because of patient refusal; Z71.3 Dietary counseling and surveillance
CPT/HCPCS: 36415; 71046; 76700; 80048; 80053; 80074; 83735; 83880; 84439; 84484; 85025; 85027; 85379; 85610; 85730; 87040; 93005; 93306; 94640; 94760; 96361; 96365; 96366; 96368; 96375; 99285